=== PATIENT | female | born 1975 | race Caucasian/White ===

== ENCOUNTER 2016-09-28 11:43 | Emergency (ER) | payer MEDICAID, OTHER ==
--- NOTE | 2016-09-28 12:36 | ED PDOC ---
HPI: General Adult Time Seen by Provider: 09/28/16 12:01 Chief Complaint (Provider): abdominal pain History Per: Patient History/Exam Limitations: no limitations Additional Complaint(s): 40yo female with abdominal pain and back pain since yesterday. She has been taking Motrin without relief, last taken 2300 yesterday. Patient had a D& C 5 days ago in [place]. States there were no symptoms after the procedure. No fever yesterday or today. States vaginal bleeding is a bit worse today, described as darker heavy clots. Past Medical History Reviewed: Historical Data, Nursing Documentation, Vital Signs - Medical History PMH: Asthma, Back Problems, Hypercholesterolemia, Kidney Stones (19 years old), Chronic Kidney Disease - Surgical History Surgical History: Cholecystectomy Other surgeries: D&C - Family History Family History: States: Unknown Family Hx - Social History Drugs: Denies - Immunization History Hx Tetanus Toxoid Vaccination: No Hx Influenza Vaccination: No Hx Pneumococcal Vaccination: No - Home Medications Home Medications: Ambulatory Orders Medication Instructions Recorded Acetaminophen/Butalbital/Caf 1 tab PO TID PRN #20 tab 06/20/16 [Fioricet] Desonide 15 gm TP BID #1 cream..g. 06/20/16 traMADol [Ultram] 50 mg PO TID PRN #15 tab 09/28/16 - Allergies Allergies/Adverse Reactions: Allergies Allergy/AdvReac Type Severity Reaction Status Date / Time No Known Allergies Allergy Verified 09/28/16 12:36 Review of Systems ROS Statement: Except As Marked, All Systems Reviewed And Found Negative Gastrointestinal: Positive for: Abdominal Pain Genitourinary Female: Positive for: Vaginal Bleeding Musculoskeletal: Positive for: Back Pain Physical Exam - Reviewed Nursing Documentation Reviewed: Yes Vital Signs Reviewed: Yes - Physical Exam Appears: Positive for: Well, Non-toxic, No Acute Distress Head Exam: Positive for: ATRAUMATIC, NORMAL INSPECTION, NORMOCEPHALIC Skin: Positive for: Warm, Dry Eye Exam: Positive for: EOMI, PERRL Cardiovascular/Chest: Positive for: Regular Rate, Rhythm Respiratory: Positive for: Normal Breath Sounds. Negative for: Rales, Rhonchi, Wheezing Gastrointestinal/Abdominal: Positive for: Soft, Tenderness (suprapubic) Extremity: Positive for: Normal ROM - Laboratory Results Result Diagrams: 09/28/16 13:00 09/28/16 13:00 - CT Scan/US US Pelvis Other Rad Studies (CT/US): Read By Radiologist, Radiology Report Reviewed Medical Decision Making Medical Decision Makin impression suprapubic pain s/p D&C 5 days ago Differential includes uterine dysfunction uterine bleeding endometriosis, UTI, fibroids Plan: US Pelvis/Transvag Labs Morphine reassess 1620 US Pelvis Impression probable 2.2 cm right ovarian follicle/cyst Disposition - Clinical Impression Clinical Impression: Genitourinary Pain, Vaginal bleeding - Patient ED Disposition Is Patient to be Admitted: No Doctor Will See Patient In The: Office Counseled Patient/Family Regarding: Studies Performed, Diagnosis, Need For Followup - Disposition Referrals: [facility] [Outside] Disposition: Routine/Home Disposition Time: 17:48 Condition: GOOD Additional Instructions: Return for worsening. Follow up with your PCP in 2-3 days. Prescriptions: traMADol [Ultram] 50 mg PO TID PRN #15 tab PRN Reason: Pain, Severe (8-10) Instructions: Ovarian Cyst (ED), Menorrhagia (ED) Additional Comments - Additional Comments Additional Comments: Scribe Attestation: Documented by Jeremiah Kirk acting as a scribe for Elly Davis MD. Provider Scribe Attestation: All medical record entries made by the Scribe were at my direction and personally dictated by me. I have reviewed the chart and agree that the record accurately reflects my personal performance of the history, physical exam, medical decision making, and the department course for this patient. I have also personally directed, reviewed, and agree with the discharge instructions and disposition.
[2016-09-28 13:37] LABS: BLOOD UREA NITROGEN 9 mg/dl (7-17); CARBON DIOXIDE 23 mmol/L (22-30); CHLORIDE 106 mmol/L (98-107); GFR AFRICAN-AMERICAN > 60; GLUCOSE,RANDOM 103 mg/dL (65-105); POTASSIUM 3.7 MMOL/L (3.6-5.0); SODIUM 140 mmol/l (132-148)
[2016-09-28 13:39] LABS: BASO # 0.1 K/uL (0.0-0.2); BASO % 0.5 % (0.0-2.0); EOS # 0.3 K/uL (0.0-0.7); EOS % 2.6 % (0.0-4.0); HEMATOCRIT 38.1 % (34.0-47.0); LYMPH # 1.9 K/uL (1.0-4.3); LYMPH % 18.3 % (20.0-40.0); MEAN CELL VOLUME 93.1 fl (81.0-99.0); MEAN CORPUSCULAR HEMOGLOBIN 31.8 pg (27.0-31.0); MEAN CORPUSCULAR HGB CONC 34.2 g/dL (33.0-37.0); MEAN PLATELET VOLUME 8.4 fl (7.2-11.7); MONO # 0.6 K/uL (0.0-0.8); MONO % 5.9 % (0.0-10.0); NEUT # 7.6 K/uL (1.8-7.0); NEUT % 72.7 % (50.0-75.0); NRBC % 0.1 % (0.0-0.0); RED CELL DISTRIBUTION WIDTH 13.5 % (11.5-14.5); WHITE BLOOD COUNT 10.5 K/uL (4.8-10.8)
--- NOTE | 2016-09-28 15:29 | US ---
HISTORY: SUPRAPUBIC PAIN COMPARISON: None available. TECHNIQUE: Pelvis ultrasound FINDINGS: UTERUS: Measures 10.1 x 5.5 x 5.7 cm. Anteverted. ENDOMETRIUM: Measures 5 mm in diameter. CERVIX: No cervical abnormality identified. RIGHT OVARY: Measures 3.4 x 2.2 x 2.6 cm. Blood flow is demonstrated. 2.2 x 1.2 x 1.7 cm anechoic lesion, likely follicle/cyst. LEFT OVARY: Measures 2.4 x 1.5 x 2.7 cm. Blood flow is demonstrated. FREE FLUID: No significant free fluid noted. OTHER FINDINGS: None. IMPRESSION: Probable 2.2 cm right ovarian follicle/cyst.
[2016-09-28] MEDS ORDERED: Oxycodone/Acetaminophen 5/325 mg Tab PO ONE (16:35)
[2016-09-28] MEDS ORDERED: Oxycodone/Acetaminophen 5/325 mg Tab ONE (16:52)
== END 2016-09-28 18:24 | disposition home or self-care (01) ==
LOC: H.ER 11:43
DX: N83.02 Follicular cyst of left ovary (principal); N92.4 Excessive bleeding in the premenopausal period; E78.00 Pure hypercholesterolemia, unspecified; N18.9 Chronic kidney disease, unspecified; J45.909 Unspecified asthma, uncomplicated; R10.9 Unspecified abdominal pain

== ENCOUNTER 2016-10-11 13:51 | Emergency (ER) | payer OTHER ==
[2016-10-11 14:04] VITALS: BP 136/63; PULSE 80; RESP 18; TEMP 97; O2SAT 100
[2016-10-11] MEDS ORDERED: Sodium Chloride 0.9% 1,000 ML IV STA (14:34)
--- NOTE | 2016-10-11 14:38 | ED PDOC ---
HPI: Abdomen Time Seen by Provider: 10/11/16 14:21 Chief Complaint (Nursing): GI Problem Chief Complaint (Provider): Abdominal Pain History Per: Patient History/Exam Limitations: no limitations Onset/Duration Of Symptoms: Days (4 days) Outside of [place] travel?: No Current Symptoms Are (Timing): Still Present Severity: Moderate Pain Scale Rating Of: 4 Location Of Pain/Discomfort: Epigastric Quality Of Discomfort: Burning, Pressure Associated Symptoms: Fever, Nausea, Vomiting (one episode), Diarrhea (several episodes), Back Pain, Other (dizziness, cough; denies dyspnea). denies: Chills , Urinary Symptoms (dysuria) Exacerbating Factors: Food Alleviating Factors: denies: OTC Meds (lindsay-seltzer, pepcid, motrin) Additional Complaint(s): Asiya Pope is a 41 year old female, with no pertinent past medical history, who presents to the emergency department for the evaluation of abdominal pain, ongoing for the past 4 days. Pain is described as a pressurized , burning sensation, rated as a 4/10 in severity, that radiates to her back. Patient states that she took [place], Pepcid, and 2 tablets of Motrin 4 days ago without relief, prompting her visit to the emergency room. Exacerbating factors includes food. Associated dizziness, nausea, one episode of vomiting, several episodes of diarrhea, a fever, and a cough are currently present. Denies chills, dysuria, or dyspnea. Of note, patient reports having had an approximately 3-4 weeks ago and a cholecystectomy when she was 19 years old. No known drug allergies. PMD: Jacqueline Gould [place] Past Medical History Reviewed: Historical Data, Nursing Documentation, Vital Signs Vital Signs: Last Vital Signs Temp 97 F L 10/11/16 14:01 Pulse 80 10/11/16 14:01 Resp 18 10/11/16 14:01 BP 136/63 10/11/16 14:01 Pulse Ox 100 10/11/16 16:11 - Medical History PMH: Asthma, Back Problems, Hypercholesterolemia, Kidney Stones (19 years old), Chronic Kidney Disease Other PMH: Deafness (wearing hearing aids) - Surgical History Surgical History: Cholecystectomy - Family History Family History: States: No Known Family Hx - Social History Current smoker - smoking cessation education provided: Yes Alcohol: Occasional Drugs: Denies - Immunization History Hx Tetanus Toxoid Vaccination: No Hx Influenza Vaccination: No Hx Pneumococcal Vaccination: No - Home Medications Home Medications: Ambulatory Orders Medication Instructions Recorded Acetaminophen/Butalbital/Caf 1 tab PO TID PRN #20 tab 06/20/16 [Fioricet] Desonide 15 gm TP BID #1 cream..g. 06/20/16 traMADol [Ultram] 50 mg PO TID PRN #15 tab 09/28/16 Omeprazole Magnesium [Prilosec Otc] 20 mg PO DAILY #30 tcp 10/11/16 Ondansetron ODT [Zofran ODT] 1 odt PO Q6 PRN #20 odt 10/11/16 - Allergies Allergies/Adverse Reactions: Allergies Allergy/AdvReac Type Severity Reaction Status Date / Time No Known Allergies Allergy Verified 09/28/16 12:36 Review of Systems ROS Statement: Except As Marked, All Systems Reviewed And Found Negative Constitutional: Positive for: Fever. Negative for: Chills Respiratory: Positive for: Cough. Negative for: Shortness of Breath Gastrointestinal: Positive for: Nausea, Vomiting, Abdominal Pain, Diarrhea Genitourinary Female: Negative for: Dysuria Musculoskeletal: Positive for: Back Pain Neurological: Positive for: Dizziness Physical Exam - Reviewed Nursing Documentation Reviewed: Yes Vital Signs Reviewed: Yes - Physical Exam Appears: Positive for: Well, Non-toxic, No Acute Distress Head Exam: Positive for: ATRAUMATIC, NORMOCEPHALIC Skin: Positive for: Normal Color, Warm, Dry. Negative for: Rash Eye Exam: Positive for: Normal appearance, EOMI. Negative for: Scleral icterus Neck: Positive for: Normal, Painless ROM, Supple Cardiovascular/Chest: Positive for: Regular Rate, Rhythm. Negative for: Murmur Respiratory: Positive for: Normal Breath Sounds. Negative for: Respiratory Distress Gastrointestinal/Abdominal: Positive for: Normal Exam, Soft, Tenderness ( epigastric tenderness to palpations) Back: Positive for: Normal Inspection. Negative for: L CVA Tenderness, R CVA Tenderness Extremity: Positive for: Normal ROM. Negative for: Tenderness, Swelling Lymphatic: Positive for: Normal Exam. Negative for: Adenopathy Neurologic/Psych: Positive for: Alert, Oriented. Negative for: Motor/Sensory Deficits - Laboratory Results Result Diagrams: 10/11/16 15:00 10/11/16 15:00 - ECG O2 Sat by Pulse Oximetry: 100 (RA) Pulse Ox Interpretation: Normal Medical Decision Making Medical Decision Makin:21 Initial Impression: Gastritis Differential Diagnoses include, but are not limited to, pancreatitis, gastroesophageal reflux disease, or a possible ulcer. Initial Plan: * Complete Blood Count * Comprehensive Metabolic Panel * Lipase * Urine Dip * Urine * Sodium Chloride 0.9% 1,000 ml IV at 1,000 mls/hr * Pepcid 20 mg IVP * Zofran 4 mg IVP * Reevaluation Scribe Attestation: Documented by Jeremiah Schilling, acting as a scribe for Marialuisa Kwon MD. Provider Scribe Attestation: All medical record entries made by the Scribe were at my direction and personally dictated by me. I have reviewed the chart and agree that the record accurately reflects my personal performance of the history, physical exam, medical decision making, and the department course for this patient. I have also personally directed, reviewed, and agree with the discharge instructions and disposition. Disposition - Clinical Impression Clinical Impression: Abdominal pain - Patient ED Disposition Is Patient to be Admitted: No Doctor Will See Patient In The: Office Counseled Patient/Family Regarding: Diagnosis, Need For Followup - Disposition Referrals: Jacqueline Gould MD [Family Provider] - 10/13/16 Disposition: Routine/Home Disposition Time: 16:00 Condition: STABLE Prescriptions: Omeprazole Magnesium [Prilosec Otc] 20 mg PO DAILY #30 tcp Ondansetron ODT [Zofran ODT] 1 odt PO Q6 PRN #20 odt PRN Reason: Nausea/Vomiting Instructions: Abdominal Pain (ED) - POA Present On Arrival: None
--- NOTE | 2016-10-11 15:05 | ED PDOC ---
- Laboratory Results Result Diagrams: 10/11/16 15:00 10/11/16 15:00 - ECG O2 Sat by Pulse Oximetry: 100 (RA) Pulse Ox Interpretation: Normal Medical Decision Making Medical Decision Makin:00 Patient transferred over to provider from Dr. Kwon. Pending ER workup, reassessment, and final disposition. 15:50 Labs demonstrate leukocytosis, otherwise no significant abnormalities. Reexamination of abdomen is benign. 15:55 Upon provider reevaluation patient is feeling better, is medically stable, and requires no further treatment in the emergency department at this time. Patient will be discharged home with a prescription for Zofran ODT and Prilosec. Counseling was provided and all questions were answered regarding diagnosis and need for follow up with Jacqueline Gould MD in 1-2 days. Patient is in agreement with provider's discharge plan and was prompted to return if their symptoms persist or worsen. Clinical Impression: Abdominal pain Scribe Attestation: Documented by Jeremiah Schilling, acting as a scribe for Giselle Ridley MD. Provider Scribe Attestation: All medical record entries made by the Scribe were at my direction and personally dictated by me. I have reviewed the chart and agree that the record accurately reflects my personal performance of the history, physical exam, medical decision making, and the department course for this patient. I have also personally directed, reviewed, and agree with the discharge instructions and disposition. Disposition - Clinical Impression Clinical Impression: Abdominal pain - POA Present On Arrival: None - Disposition Referrals: Jacqueline Gould MD [Family Provider] - 10/13/16 Disposition: Routine/Home Disposition Time: 15:55 Condition: STABLE Prescriptions: Omeprazole Magnesium [Prilosec Otc] 20 mg PO DAILY #30 tcp Ondansetron ODT [Zofran ODT] 1 odt PO Q6 PRN #20 odt PRN Reason: Nausea/Vomiting Instructions: Abdominal Pain (ED)
[2016-10-11 15:15] LABS: BASO # 0.1 K/uL (0.0-0.2); BASO % 0.4 % (0.0-2.0); EOS # 0.6 K/uL (0.0-0.7); EOS % 4.2 % (0.0-4.0); LYMPH # 1.8 K/uL (1.0-4.3); LYMPH % 13.5 % (20.0-40.0); MEAN CELL VOLUME 93.7 fl (81.0-99.0); MEAN CORPUSCULAR HEMOGLOBIN 31.5 pg (27.0-31.0); MEAN CORPUSCULAR HGB CONC 33.6 g/dL (33.0-37.0); MEAN PLATELET VOLUME 8.2 fl (7.2-11.7); MONO # 0.6 K/uL (0.0-0.8); MONO % 4.8 % (0.0-10.0); NEUT # 10.1 K/uL (1.8-7.0); NEUT % 77.1 % (50.0-75.0); NRBC % 0.1 % (0.0-0.0); RED CELL DISTRIBUTION WIDTH 13.6 % (11.5-14.5); WHITE BLOOD COUNT 13.1 K/uL (4.8-10.8)
[2016-10-11 15:26] LABS: ALB/GLOB RATIO 1.2 (1.0-2.1); ALKALINE PHOSPHATASE 60 U/L (38-126); ALT/SGPT 30 U/L (9-52); AST/SGOT 25 U/L (14-36); BILIRUBIN,TOTAL 0.9 mg/dl (0.2-1.3); BLOOD UREA NITROGEN 20 mg/dl (7-17); CALCIUM 9.1 mg/dL (8.4-10.2); CARBON DIOXIDE 25 mmol/L (22-30); CHLORIDE 103 mmol/L (98-107); GFR AFRICAN-AMERICAN > 60; GLUCOSE,RANDOM 91 mg/dL (65-105); LIPASE 66 U/L (23-300); SODIUM 138 mmol/l (132-148); TOTAL PROTEIN 7.9 G/DL (6.3-8.2)
[2016-10-11 15:39] LABS: RBC URINE 5 /hpf (0-3); URINE BACTERIA OCC (<OCC); URINE BILIRUBIN NEGATIVE (NEGATIVE); URINE COLOR AMBER (YELLOW); URINE GLUCOSE (UA) NEG (Normal); URINE KETONE TRACE mg/dL (NEGATIVE); URINE PROTEIN 100 mg/dL (NEGATIVE); URINE UROBILINOGEN 0.2-1.0 mg/dL (0.2-1.0); WBC URINE 16 /hpf (0-5)
[2016-10-11 15:40] LABS: URINE BLOOD SMALL (NEGATIVE)
[2016-10-11 15:41] LABS: URINE LEUKOCYTE ESTERASE MODERATE Leu/uL (Negative)
== END 2016-10-11 16:31 | disposition home or self-care (01) ==
LOC: H.ER 13:51
DX: R10.9 Unspecified abdominal pain (principal); R11.2 Nausea with vomiting, unspecified; R19.7 Diarrhea, unspecified; R42 Dizziness and giddiness

== ENCOUNTER 2018-04-04 14:04 | Emergency (ER) | payer MEDICAID, OTHER ==
[2018-04-04 14:05] VITALS: BMI 27.4
[2018-04-04 14:59] VITALS: BP 159/84; PULSE 61; RESP 18; TEMP 98.4; O2SAT 99
[2018-04-04] MEDS ORDERED: Alum-Mag Hydrox-Simethicone Susp (30 mL) PO ONE (15:17)
--- NOTE | 2018-04-04 15:19 | ED PDOC ---
HPI: Abdomen Additional Complaint(s): Pt seen and examined at bedside with attending. 42F no PMH, but PSH lap CCY (1985) p/w RUQ sharp, constant pain radiating into infrascapular that she rates as 7/10 and is unable to identify exacerbating/duong viating symptoms. There are no associated fevers, chills, N/V/diarrhea. She has tried "Tylenol/motrin/pepcid and nothing works". She denies any association with foods, types of foods, dysuria, or reflux. Her last BM was today. PMD: [place] LMP: 03/03/18 <Lashaun Salas - Last Filed: 04/04/18 18:38> <Jaime Daivs - Last Filed: 04/05/18 12:59> Chief Complaint (Nursing): Abdominal Pain Supervising Attending Note - Supervising Attending Note The Documented history was done by the: Physician Professor Of Early Childhood Education, Attending Physician The documented physical exam was done by the: Physician Professor Of Early Childhood Education, Attending Physician The documented procedures were done by the: Physician Professor Of Early Childhood Education, Attending Physician - Attestation: I have personally seen and examined this patient.: Yes I have fully participated in the care of the patient.: Yes I have reviewed all pertinent clinical information: Yes <Jaime Davis - Last Filed: 04/05/18 12:59> Past Medical History Vital Signs: Last Vital Signs Temp 36.9 C 04/04/18 14:57 Pulse 61 04/04/18 14:57 Resp 18 04/04/18 14:57 BP 159/84 H 04/04/18 14:57 Pulse Ox 99 04/04/18 14:57 - Medical History PMH: Back Problems, Kidney Stones (19 years old), Chronic Kidney Disease Denies: Asthma, Hypercholesterolemia - Surgical History Surgical History: Cholecystectomy - Family History Family History: States: Unknown Family Hx - Immunization History Hx Tetanus Toxoid Vaccination: No Hx Influenza Vaccination: Yes (2016) Hx Pneumococcal Vaccination: No <Lashaun Salas - Last Filed: 04/04/18 18:38> Reviewed: Historical Data, Nursing Documentation, Vital Signs Vital Signs: Last Vital Signs Temp 98.4 F 04/04/18 14:57 Pulse 61 04/04/18 14:57 Resp 18 04/04/18 14:57 BP 159/84 H 04/04/18 14:57 Pulse Ox 99 04/04/18 18:39 <Jaime Davis - Last Filed: 04/05/18 12:59> - Home Medications Home Medications: Ambulatory Orders Medication Instructions Recorded Triamcinolone 0.1% [Triamcinolone 0.1 gm TP BID PRN #1 tube 10/18/17 0.1% Cream] traMADol [Ultram] 50 mg PO TID PRN #15 tab 04/04/18 - Allergies Allergies/Adverse Reactions: Allergies Allergy/AdvReac Type Severity Reaction Status Date / Time No Known Allergies Allergy Verified 04/04/18 14:57 Review of Systems ROS Statement: Except As Marked, All Systems Reviewed And Found Negative Gastrointestinal: Positive for: Abdominal Pain (RUQ) <Lashaun Salas - Last Filed: 04/04/18 18:38> ROS Statement: Except As Marked, All Systems Reviewed And Found Negative <Jaime Davis - Last Filed: 04/05/18 12:59> Physical Exam - Reviewed Vital Signs Reviewed: Yes - Physical Exam Appears: Positive for: Well, Non-toxic, No Acute Distress Head Exam: Positive for: ATRAUMATIC Skin: Positive for: Normal Color, Warm, Dry Eye Exam: Positive for: Normal appearance, EOMI Neck: Positive for: Supple Cardiovascular/Chest: Positive for: Regular Rate, Rhythm Respiratory: Positive for: Normal Breath Sounds. Negative for: Crackles, Rales, Rhonchi, Wheezing Gastrointestinal/Abdominal: Positive for: Bowel Sounds, Soft, Tenderness (minimal ttp on deep palpation) Back: Negative for: L CVA Tenderness, R CVA Tenderness Extremity: Positive for: Normal ROM. Negative for: Pedal Edema, Calf Tenderness, Swelling Neurologic/Psych: Positive for: Alert, Oriented <Lashaun Salas - Last Filed: 04/04/18 18:38> - Reviewed Nursing Documentation Reviewed: Yes <Jaime Davis - Last Filed: 04/05/18 12:59> - Laboratory Results Result Diagrams: 04/04/18 15:38 04/04/18 15:38 - ECG O2 Sat by Pulse Oximetry: 99 <Lashuan Salas - Last Filed: 04/04/18 18:38> - Laboratory Results Result Diagrams: 04/04/18 15:38 04/04/18 15:38 <Jaime Davis - Last Filed: 04/05/18 12:59> Medical Decision Making Medical Decision Making: Gastritis vs. Pancreatitis vs. constipation vs. less likely retained stone. - CBC, CMP, Lipase - Mylanta/Protonix - Reeval 1608 CMP is WNL, CBC mild leukocytosis UA negative except trace blood - CT abd/pelvis w/o contrast to eval for possible kidney stone 1825 CT official read: no evidence of renal stones, but heterogeneity of RIGHT lobe segments 7/[address] w/ contrast or ultrasund f/u - Ultrasound abd limited ordered <Lashaun Salas - Last Filed: 04/04/18 18:38> Disposition <Lashaun Salas - Last Filed: 04/04/18 18:38> - Patient ED Disposition Is Patient to be Admitted: Transfer of Care Counseled Patient/Family Regarding: Studies Performed, Diagnosis - Disposition Disposition: Transfer of Care Disposition Time: 17:00 <Jaime Davis - Last Filed: 04/05/18 12:59> - Clinical Impression Clinical Impression: Liver mass, right lobe, Complex cyst of right ovary - Disposition Referrals: [facility] [Outside] (CALL [facility] FOR ANY ASSISTANCE WITH F DONTRELL APPOINTMENTS.) [facility] [Outside] (GET YOUR PELVIC ULTRASOUND AND SCHEDULE APPO INTMENT WITH [facility] OR MANAGER RELOCATION OF YOUR CHOICE SOON POSSIBLE.) [facility] [Family Provider] - (FOLLOW UP WITH GERTRUDE PAULINO THIS WEEK FOR REFERRAL FOR MANAGER RELOCATION) Condition: STABLE Additional Instructions: YOU NEED FURTHER WORKUP FOR THE MASS ON YOUR LIVER AND THE ABNORMALITIES ON YOUR OVARY AND UTERUS. MANDATORY FOLLOWUP WITH YOUR DOCTOR AND [facility] THIS WEEK. Prescriptions: traMADol [Ultram] 50 mg PO TID PRN #15 tab PRN Reason: SEVERE PAIN ONLY Instructions: Acute Abdomen (Belly Pain), Adult (DC), Ovarian Cyst (DC) Forms: [facility] ED School/Work Excuse
[2018-04-04 15:53] LABS: HEMOGLOBIN 12.6 g/dL (12.0-16.0); MEAN CELL VOLUME 91.2 fl (81.0-99.0); MEAN CORPUSCULAR HEMOGLOBIN 29.1 pg (27.0-31.0); MEAN CORPUSCULAR HGB CONC 31.9 g/dL (33.0-37.0); RBC 4.34 Mil/uL (3.80-5.20); RED CELL DISTRIBUTION WIDTH 15.8 % (11.5-14.5); WHITE BLOOD COUNT 12.5 K/uL (4.8-10.8)
[2018-04-04 15:54] LABS: ALB/GLOB RATIO 1.1 (1.0-2.1); ALBUMIN 4.2 g/dL (3.5-5.0); ALT/SGPT 22 U/L (9-52); AST/SGOT 29 U/L (14-36); BLOOD UREA NITROGEN 14 mg/dl (7-17); CALCIUM 9.1 mg/dL (8.4-10.2); GFR NON-AFRICAN AMERICAN > 60; LIPASE 61 U/L (23-300)
[2018-04-04] MEDS ORDERED: Alum-Mag Hydrox-Simethicone Susp (30 mL) ONE (16:10)
--- NOTE | 2018-04-04 18:28 | CT ---
Date of service: 04/04/2018 PROCEDURE: CT Abdomen and Pelvis without intravenous contrast HISTORY: r/o nephrolithiasis Negative test (concurrent with this examination). COMPARISON: 02/03/2014 CT abdomen and pelvis TECHNIQUE: Unenhanced. Neither IV nor oral contrast administered Radiation dose: Total exam DLP = 684.68 mGy-cm. This CT exam was performed using one or more of the following dose reduction techniques: Automated exposure control, adjustment of the mA and/or kV according to patient size, and/or use of iterative reconstruction technique. FINDINGS: LOWER THORAX: Unremarkable. LIVER: Heterogeneity of the liver particularly the right hepatic lobe. The findings primarily affect segments 7 and 8. These findings were not apparent on the prior CT. Follow-up recommended either contrast-enhanced CT or abdominal ultrasound. GALLBLADDER AND BILE DUCTS: Status post cholecystectomy. No abnormality is seen in the gallbladder fossa. PANCREAS: Unremarkable. No gross lesion or ductal dilatation. SPLEEN: Unremarkable. ADRENALS: Unremarkable. No mass. KIDNEYS AND URETERS: Unremarkable. No hydronephrosis. No solid mass. VASCULATURE: Unremarkable. No aortic aneurysm. No atherosclerotic calcification or mural plaque present. BOWEL: Unremarkable. No obstruction. No gross mural thickening. APPENDIX: Unremarkable. Normal appendix. PERITONEUM: Unremarkable. No free fluid. No free air. LYMPH NODES: Unremarkable. No enlarged lymph nodes. BLADDER: Unremarkable. REPRODUCTIVE: Enlarged, anteverted uterus. BONES: No acute fracture. OTHER FINDINGS: None. IMPRESSION: Unremarkable kidneys, ureters and urinary bladder. Abnormal attenuation features of the right hepatic lobe. Follow-up advised either contrast-enhanced CT or ultrasound.
[2018-04-04] MEDS ORDERED: Iohexol 300 100 ML IJ ONE (21:17)
[2018-04-04] MEDS ORDERED: Sodium Chloride 0.9% 50 ML IV ONE (21:18)
--- NOTE | 2018-04-05 11:11 | CT ---
Date of service: 04/04/2018 PROCEDURE: CT Abdomen and Pelvis with contrast HISTORY: Right liver mass COMPARISON: 04/04/2018 and 02/03/2014. TECHNIQUE: CT scan of the abdomen and pelvis was performed after administration of intravenous contrast. Oral contrast was administered. Coronal and sagittal reformatted images were obtained. Contrast dose: Radiation dose: Total exam DLP = 721.87 mGy-cm. This CT exam was performed using one or more of the following dose reduction techniques: Automated exposure control, adjustment of the mA and/or kV according to patient size, and/or use of iterative reconstruction technique. FINDINGS: LOWER THORAX: The visualized lungs are clear. LIVER: There is an approximately 5.6 x 0.0 x 6.5 cm hypodense mass with peripheral rim enhancement in the posterior superior right hepatic lobe. No ductal dilatation. GALLBLADDER AND BILE DUCTS: Surgically absent. PANCREAS: Normal in size with homogeneous enhancement. No gross lesion or ductal dilatation. SPLEEN: Normal in size and appearance. ADRENALS: No discrete nodule. KIDNEYS AND URETERS: Normal in size with homogeneous enhancement. No hydronephrosis. There is a subcentimeter simple cyst in the lower pole of the left kidney. VASCULATURE: No aortic aneurysm. BOWEL: Evaluation of the bowel is limited in the absence of oral contrast. The small bowel loops are normal in caliber. The colon is grossly normal in appearance. No bowel wall thickening or obstruction. APPENDIX: Normal appendix. PERITONEUM: No free fluid. No free air. LYMPH NODES: No enlarged lymph nodes. BLADDER: Well distended and normal in appearance. REPRODUCTIVE: The uterus is bulky, anteverted and there is diffuse heterogeneous myometrial enhancement. There is a 2.5 cm cyst in the right ovary. BONES: No acute fracture. Within normal limits for the patient's age. OTHER FINDINGS: None. IMPRESSION: Large rim enhancing hypodense mass in the posterior superior right hepatic lobe. The differential considerations include benign and malignant neoplasms, including primary and secondary malignancy. Histopathologic correlation and if clinically indicated correlation with PET-CT may be performed. Bulky uterus with heterogeneous myometrial enhancement. Finding are nonspecific could be related to adenomyosis. Correlation with pelvic ultrasound is advised. A preliminary report was provided by [employer].
--- NOTE | 2018-04-05 11:24 | US ---
Date of service: 04/04/2018 HISTORY: heterogeneity RIGHT lobe / COMPARISON: None. TECHNIQUE: Sonographic evaluation of the right upper quadrant of the abdomen. FINDINGS: LIVER: Measures 15.9 cm in length. Normal echogenicity of the liver parenchyma. There is a 7.7 x 5.3 x 6.2 cm hyperechoic mass in the right hepatic lobe. No intrahepatic bile duct dilatation. GALLBLADDER: Surgically absent. COMMON BILE DUCT: Measures 6.0 mm. No stones. No dilatation. PANCREAS: Unremarkable as visualized. No mass. No ductal dilatation. RIGHT KIDNEY: Measures 10.9 cm in length. Normal echogenicity. No calculus, mass, or hydronephrosis. AORTA: No aneurysmal dilatation. IVC: Unremarkable. OTHER FINDINGS: None . IMPRESSION: 7.7 x 5.3 x 6.2 cm mass in the right hepatic lobe. The differential considerations include benign and malignant neoplasms including giant hemangioma, primary and metastatic lesions. CT scan/MRI of the abdomen with liquid protocol is recommended for further evaluation.
== END 2018-04-04 23:45 | disposition home or self-care (01) ==
LOC: H.ER 14:04
DX: R16.0 Hepatomegaly, not elsewhere classified (principal); N83.201 Unspecified ovarian cyst, right side; N18.9 Chronic kidney disease, unspecified; Z87.442 Personal history of urinary calculi
CPT/HCPCS: 74176; 74177; 76705; 80053; 81025; 83690; 85027; 96374; 99284; C9113; Q9967

== ENCOUNTER 2018-06-01 12:20 | Inpatient (IN) | payer MEDICAID ==
[2018-06-01 12:20] VITALS: BMI 27.4
--- NOTE | 2018-06-01 13:35 | ED PDOC ---
HPI: Abdomen Time Seen by Provider: 06/01/18 12:25 Chief Complaint (Nursing): Abdominal Pain Chief Complaint (Provider): Abdominal Pain History Per: Patient History/Exam Limitations: no limitations Onset/Duration Of Symptoms: Days (x1) Location Of Pain/Discomfort: RUQ Associated Symptoms: Fever, Nausea. denies: Diarrhea Additional Complaint(s): 42 y/o female presents to ER for evaluation of right sided abdominal pain radiating to the rest of the abdomen onset last night associated with nausea. Patient reports she was here in March for the same complaint and was diagnosed with liver mass. She states she is seeing a specialist and doing blood work and workup as an outpaitent but pain is sharp since last night. Patient reports pain is worse with coughing. . She denies vomiting or diarrhea. PMD: Simón Ontiveros Specialist: Breanna Antoine Past Medical History Reviewed: Historical Data, Nursing Documentation, Vital Signs Vital Signs: Last Vital Signs Temp 98.3 F 06/01/18 12:34 Pulse 90 06/01/18 12:24 Resp 16 06/01/18 12:24 BP 146/81 06/01/18 12:24 Pulse Ox 96 06/01/18 12:24 - Medical History PMH: Back Problems, Kidney Stones (19 years old), Chronic Kidney Disease Denies: Asthma, Hypercholesterolemia - Surgical History Surgical History: Cholecystectomy - Family History Family History: States: Unknown Family Hx - Social History Current smoker - smoking cessation education provided: No Alcohol: None Drugs: Denies - Immunization History Hx Tetanus Toxoid Vaccination: No Hx Influenza Vaccination: Yes (2016) Hx Pneumococcal Vaccination: No - Home Medications Home Medications: Ambulatory Orders Medication Instructions Recorded Guaifenesin/Dextromethorphan 1 tab PO Q12 PRN 06/01/18 [Guaifenesin-Dm 400-20 mg Cplt] RX: Acyclovir [Zovirax] 400 mg PO Q8 06/01/18 - Allergies Allergies/Adverse Reactions: Allergies Allergy/AdvReac Type Severity Reaction Status Date / Time No Known Allergies Allergy Verified 06/01/18 12:24 Review of Systems ROS Statement: Except As Marked, All Systems Reviewed And Found Negative Constitutional: Positive for: Fever Gastrointestinal: Positive for: Nausea, Abdominal Pain. Negative for: Vomiting, Diarrhea Physical Exam - Reviewed Nursing Documentation Reviewed: Yes Vital Signs Reviewed: Yes - Physical Exam Appears: Positive for: Non-toxic, No Acute Distress Head Exam: Positive for: ATRAUMATIC, NORMOCEPHALIC Skin: Positive for: Normal Color, Warm, Dry Eye Exam: Positive for: Normal appearance ENT: Positive for: Normal ENT Inspection Neck: Positive for: Normal, Painless ROM, Supple Cardiovascular/Chest: Positive for: Regular Rate, Rhythm. Negative for: Murmur Respiratory: Positive for: Normal Breath Sounds. Negative for: Wheezing Gastrointestinal/Abdominal: Positive for: Bowel Sounds, Soft, Tenderness (r side of abdomen (mild)). Negative for: Distended, Guarding, Rebound Back: Positive for: Normal Inspection. Negative for: L CVA Tenderness, R CVA Tenderness Extremity: Positive for: Normal ROM. Negative for: Pedal Edema, Swelling Neurologic/Psych: Positive for: Alert, Oriented (x3) - Laboratory Results Result Diagrams: 06/02/18 05:45 06/02/18 05:45 - ECG O2 Sat by Pulse Oximetry: 96 (RA) Pulse Ox Interpretation: Normal Medical Decision Making Medical Decision Making: Time: 1335 Initial Plan: abdominal pain, history of liver mass, rule out intraabdominal process, electrolyte abnormality --CT Abdomen/Pelvis --CMP --CBC --Morphine 4 mg IV --Zofran 4 mg IV --CXR 1612 CXR FINDINGS: LUNGS: No active pulmonary disease. PLEURA: No significant pleural effusion identified. No pneumothorax apparent. CARDIOVASCULAR: No aortic atherosclerotic calcification present. Normal cardiac size. No pulmonary vascular congestion. OSSEOUS STRUCTURES: No significant abnormalities. VISUALIZED UPPER ABDOMEN: Normal. OTHER FINDINGS: None. IMPRESSION: No active disease. No significant interval change compared to the prior examination(s). 175 Dr[address] [facility] has accepted patient denisse placed order for GI consult. pt given pain meds. Scribe Attestation: Documented by Wilma Thakur, acting as a scribe for Austen Gu MD. Provider Scribe Attestation: All medical record entries made by the Scribe were at my direction and personall y dictated by me. I have reviewed the chart and agree that the record accurately reflects my personal performance of the history, physical exam, medical decision making, and the department course for this patient. I have also personally directed, reviewed, and agree with the discharge instructions and disposition. Disposition - Clinical Impression Clinical Impression: Abdominal discomfort, Liver mass, right lobe - Patient ED Disposition Is Patient to be Admitted: Yes - Disposition Disposition Time: 17:00 Condition: STABLE
[2018-06-01] MEDS ORDERED: Sodium Chloride 0.9% 1,000 ML IV STA (13:36)
[2018-06-01] MEDS ORDERED: Morphine 4 MG/ML VIAL ONE ×2 (14:16→16:55)
[2018-06-01 14:36] LABS: BASO # 0.1 K/uL (0.0-0.2); BASO % 0.5 % (0.0-2.0); EOS # 0.4 K/uL (0.0-0.7); EOS % 2.5 % (0.0-4.0); HEMOGLOBIN 11.9 g/dL (12.0-16.0); LYMPH # 1.6 K/uL (1.0-4.3); LYMPH % 10.5 % (20.0-40.0); MEAN CELL VOLUME 91.8 fl (81.0-99.0); MEAN CORPUSCULAR HEMOGLOBIN 29.7 pg (27.0-31.0); MEAN CORPUSCULAR HGB CONC 32.4 g/dL (33.0-37.0); MEAN PLATELET VOLUME 8.4 fl (7.2-11.7); MONO # 0.8 K/uL (0.0-0.8); MONO % 5.2 % (0.0-10.0); NEUT # 12.3 K/uL (1.8-7.0); NEUT % 81.3 % (50.0-75.0); NRBC % 0.1 % (0.0-0.0); RBC 4.02 Mil/uL (3.80-5.20); RED CELL DISTRIBUTION WIDTH 15.3 % (11.5-14.5); WHITE BLOOD COUNT 15.1 K/uL (4.8-10.8)
[2018-06-01 14:43] LABS: ALB/GLOB RATIO 1.1 (1.0-2.1); ALT/SGPT 22 U/L (9-52); AST/SGOT 25 U/L (14-36); BLOOD UREA NITROGEN 13 mg/dl (7-17); GFR NON-AFRICAN AMERICAN > 60
[2018-06-01] MEDS ORDERED: Morphine 4 MG/ML VIAL IV ONE ×2 (14:45→16:47)
[2018-06-01] MEDS ORDERED: Iohexol 300 100 ML IJ ONE (16:03)
[2018-06-01] MEDS ORDERED: Sodium Chloride 0.9% 50 ML IV ONE (16:03)
--- NOTE | 2018-06-01 16:16 | RAD ---
Date of service: 06/01/2018 HISTORY: COLD SYMPTOMS COMPARISON: 05/18/2014 TECHNIQUE: Chest PA and lateral FINDINGS: LUNGS: No active pulmonary disease. PLEURA: No significant pleural effusion identified. No pneumothorax apparent. CARDIOVASCULAR: No aortic atherosclerotic calcification present. Normal cardiac size. No pulmonary vascular congestion. OSSEOUS STRUCTURES: No significant abnormalities. VISUALIZED UPPER ABDOMEN: Normal. OTHER FINDINGS: None. IMPRESSION: No active disease. No significant interval change compared to the prior examination(s).
--- NOTE | 2018-06-01 17:03 | CT ---
Date of service: 06/01/2018 PROCEDURE: CT Abdomen and Pelvis with contrast HISTORY: Left-sided abdominal pain COMPARISON: CT scan and ultrasound from 04/04/2018. TECHNIQUE: CT scan of the abdomen and pelvis was performed after administration of intravenous contrast. Oral contrast was not administered. Coronal and sagittal reformatted images were obtained. Contrast dose: 95 mL Omnipaque 3 Radiation dose: Total exam DLP = 754.53 mGy-cm. This CT exam was performed using one or more of the following dose reduction techniques: Automated exposure control, adjustment of the mA and/or kV according to patient size, and/or use of iterative reconstruction technique. FINDINGS: LOWER THORAX: The visualized lungs are clear. LIVER: There is mild hepatomegaly. There is redemonstration of a large 8.6 x 6.5 cm low-attenuation mass with peripheral rim enhancement in the posterior right hepatic lobe, increased in size since the prior examination where it measured 7.1 x 5.5 cm. The mass compresses the posterior branch of the right portal vein. There is a large triangular area of differential low-attenuation in the posterior right hepatic lobe. There is mild periportal edema. GALLBLADDER AND BILE DUCTS: Surgically absent. PANCREAS: Normal in size with homogeneous enhancement. No gross lesion or ductal dilatation. SPLEEN: Normal in size and appearance. ADRENALS: No discrete nodule. KIDNEYS AND URETERS: Normal in size with homogeneous enhancement. No hydronephrosis. No solid mass. There is a subcentimeter simple cyst in the lower pole of the left kidney. VASCULATURE: No aortic aneurysm. BOWEL: Evaluation of the bowel is limited in the absence of oral contrast. The small bowel loops are normal in caliber. The colon is grossly normal in appearance. No bowel wall thickening or obstruction. APPENDIX: Normal appendix. PERITONEUM: No free fluid. No free air. LYMPH NODES: No enlarged lymph nodes. BLADDER: Well distended and normal in appearance. REPRODUCTIVE: Redemonstration of bulky uterus with heterogeneous myometrial enhancement.. There is a 3.1 x 2.5 cm high attenuation cyst in the right ovary. BONES: No acute fracture. Chronic bilateral pars interarticularis defects at L5 with grade 1 anterior listhesis of L5 on S1. Severe degenerative disc disease at L5-S1. OTHER FINDINGS: None. IMPRESSION: 1. Interval increase in size of known large peripherally enhancing mass in the posterior right hepatic lobe. Interval development of mild periportal edema and large triangular area of differential attenuation in the right posterior hepatic lobe likely related to compression of posterior branch of the right portal vein and hypoperfusion. MRI of the abdomen with liver protocol without and with intravenous contrast is recommended for definitive characterization of the mass. 2. 3.1 cm complicated/hemorrhagic cyst in the right ovary. 3. Bulky uterus with heterogeneous myometrial enhancement, adenomyosis is a differential consideration.
[2018-06-01] MEDS: HYDROmorphone 0.5 mg/0.5 ml ISec IVP PRN (21:08)
[2018-06-01] MEDS: Promethazine 6.25 MG/5 ML CUP PO PRN (22:03)
[2018-06-02] MEDS: HYDROmorphone 0.5 mg/0.5 ml ISec IVP PRN ×3 (03:44→16:23)
[2018-06-02] MEDS: Promethazine 6.25 MG/5 ML CUP PO PRN ×2 (03:46→19:12)
[2018-06-02 06:28] LABS: HEMOGLOBIN 11.7 g/dL (12.0-16.0); MEAN CORPUSCULAR HEMOGLOBIN 29.9 pg (27.0-31.0); MEAN CORPUSCULAR HGB CONC 33.2 g/dL (33.0-37.0); RBC 3.92 Mil/uL (3.80-5.20); RED CELL DISTRIBUTION WIDTH 15.4 % (11.5-14.5); WHITE BLOOD COUNT 10.6 K/uL (4.8-10.8)
[2018-06-02 06:50] LABS: ALBUMIN 3.7 g/dL (3.5-5.0); ALT/SGPT 23 U/L (9-52); AST/SGOT 24 U/L (14-36); BLOOD UREA NITROGEN 7 mg/dl (7-17); CALCIUM 8.7 mg/dL (8.4-10.2)
[2018-06-02 06:56] LABS: GFR NON-AFRICAN AMERICAN > 60
--- NOTE | 2018-06-02 08:04 | CP.PCM.HP ---
History of Present Illness - History of Present Illness History of Present Illness: 42 yo female presented to ED with right abdominal pain. Patient recently found out about a 'liver problem' last month. Patient found to have liver mass on CT GI consulted pain improved though still present no other complaints at this time denies fever, chills, cp,sob. allergies: as per chart meds: as per chart fam hx: non contributory Present on Admission - Present on Admission Any Indicators Present on Admission: No Review of Systems - Review of Systems All systems: reviewed and no additional remarkable complaints except (mentioned above) Past Patient History - Past Medical History & Family History Past Medical History?: Yes Past Family History: Reviewed and not pertinent - Past Social History Smoking Status: Current Some Days Smoker - CARDIAC Hx Cardiac Disorders: No Hx Hypercholesterolemia: No Hx Hypertension: No - PULMONARY Hx Respiratory Disorders: No Hx Asthma: No Other/Comment: smoker some days - NEUROLOGICAL Hx Neurological Disorder: No - HEENT Hx HEENT Problems: Yes Hx Deafness: Yes (wears hearing aids to Left, forgot hearing aide to R at home) - RENAL Hx Chronic Kidney Disease: Yes (denies hx of ckd) Hx Kidney Stones: Yes - ENDOCRINE/METABOLIC Hx Endocrine Disorders: No Hx Diabetes Mellitus Type 2: No - HEMATOLOGICAL/ONCOLOGICAL Hx Blood Disorders: No Hx AIDS: No Hx Human Immunodeficiency Virus (HIV): No - INTEGUMENTARY Hx Dermatological Problems: No - MUSCULOSKELETAL/RHEUMATOLOGICAL Hx Musculoskeletal Disorders: No Hx Falls: No - GASTROINTESTINAL Hx Gastrointestinal Disorders: Yes Hx Gall Bladder Disease: Yes Other/Comment: hx of liver mass, reports admitted last month. followed up with liver specialist 05/16/18 T[facility] Rick and was supposed to get a liver bx - GENITOURINARY/GYNECOLOGICAL Hx Genitourinary Disorders: Yes Hx Sexually Transmitted Disorders: Yes (genital herpes hx) - PSYCHIATRIC Hx Psychophysiologic Disorder: No Hx Substance Use: No - SURGICAL HISTORY Hx Surgeries: Yes Hx Cholecystectomy: Yes (20 yrs ago) - ANESTHESIA Hx Anesthesia: Yes Hx Anesthesia Reactions: No Hx Malignant Hyperthermia: No Meds Allergies/Adverse Reactions: Allergies Allergy/AdvReac Type Severity Reaction Status Date / Time No Known Allergies Allergy Verified 06/01/18 12:24 Physical Exam - Constitutional Appears: Non-toxic, No Acute Distress - Head Exam Head Exam: NORMAL INSPECTION - Eye Exam Eye Exam: Normal appearance - Neck Exam Neck exam: Positive for: Normal Inspection - Respiratory Exam Respiratory Exam: NORMAL BREATHING PATTERN - Cardiovascular Exam Cardiovascular Exam: +S1, +S2 - GI/Abdominal Exam GI & Abdominal Exam: Tenderness - Extremities Exam Extremities exam: Positive for: normal inspection - Neurological Exam Neurological exam: Alert, Oriented x3 - Psychiatric Exam Psychiatric exam: Normal Affect, Normal Mood - Skin Skin Exam: Normal Color, Warm Results - Vital Signs Recent Vital Signs: Last Vital Signs Temp 97.7 F 06/02/18 07:57 Pulse 59 L 06/02/18 07:57 Resp 18 06/02/18 07:57 BP 130/83 06/02/18 07:57 Pulse Ox 96 06/02/18 07:57 - Labs Result Diagrams: 06/02/18 05:45 06/02/18 05:45 Labs: Laboratory Results - last 24 hr 06/01/18 06/01/18 06/02/18 14:26 14:26 05:45 WBC 15.1 H 10.6 RBC 4.02 3.92 Hgb 11.9 L 11.7 L Hct 36.9 35.3 MCV 91.8 90.0 MCH 29.7 29.9 MCHC 32.4 L 33.2 RDW 15.3 H 15.4 H Plt Count 274 266 MPV 8.4 Neut % (Auto) 81.3 H Lymph % (Auto) 10.5 L [place] % (Auto) 5.2 Eos % (Auto) 2.5 Baso % (Auto) 0.5 Neut # (Auto) 12.3 H Lymph # (Auto) 1.6 [place] # (Auto) 0.8 Eos # (Auto) 0.4 Baso # (Auto) 0.1 Sodium 138 Potassium 3.7 Chloride 99 Carbon Dioxide 27 Anion Gap 16 BUN 13 Creatinine 0.6 L Est GFR ( Amer) > 60 Est GFR (Non-Af Amer) > 60 Random Glucose 103 Calcium 9.0 Total Bilirubin 0.4 AST 25 ALT 22 Alkaline Phosphatase 81 Total Protein 7.7 Albumin 4.0 Globulin 3.6 Albumin/Globulin Ratio 1.1 06/02/18 05:45 WBC RBC Hgb Hct MCV MCH MCHC RDW Plt Count MPV Neut % (Auto) Lymph % (Auto) [place] % (Auto) Eos % (Auto) Baso % (Auto) Neut # (Auto) Lymph # (Auto) [place] # (Auto) Eos # (Auto) Baso # (Auto) Sodium 132 Potassium 3.5 L Chloride 99 Carbon Dioxide 28 Anion Gap 9 L BUN 7 Creatinine 0.7 Est GFR ( Amer) > 60 Est GFR (Non-Af Amer) > 60 Random Glucose 96 Calcium 8.7 Total Bilirubin 0.8 AST 24 ALT 23 Alkaline Phosphatase 77 Total Protein 7.3 Albumin 3.7 Globulin 3.6 Albumin/Globulin Ratio 1.0 Assessment & Plan (1) Liver mass, right lobe Status: Acute (2) Complex cyst of right ovary Status: Acute - Assessment and Plan (Free Text) Plan: monitor labs monitor vitals GI consulted obtain MRI of abdomen obtain TVUS consider ob gyn consult rest of plan as orderd
[2018-06-02] MEDS ORDERED: Pneumococcal 23-Valent Vaccine IM ONE (09:00)
[2018-06-02] MEDS ORDERED: Influenza Vaccine (5 YR UP)/PF 60 MCG/0.5 ML SYR IM ONE (09:00)
[2018-06-02] MEDS: Morphine 4 MG/ML VIAL IVP PRN ×2 (09:01→19:09)
[2018-06-02 10:12] LABS: PROTHROMBIN TIME 11.3 Seconds (9.8-13.1)
[2018-06-02 10:14] LABS: PARTIAL THROMBOPLASTIN TIME 33.9 Seconds (25.6-37.1)
--- NOTE | 2018-06-02 13:47 | US ---
Date of service: 06/02/2018 HISTORY: ovarian cyst COMPARISON: CT of the abdomen and pelvic report 06/01/2018 TECHNIQUE: Transvaginal FINDINGS: UTERUS: Measures 9.6 x 6.5 x 5.7 cm. Anteverted Posterior upper uterine body intramural fibroid 2.3 x 2.2 x 1.9 cm. ENDOMETRIUM: Measures 7 mm in diameter. Unremarkable. CERVIX: Small 5 mm nabothian cysts noted RIGHT OVARY: Right ovary measures 4.8 x 2.9 x 2.7 cm. Small cystic components the right ovary are smaller than that suggested with the more dominant cystic appearance suggested on the recent CT abdomen and pelvic exam. Normal flow to the right ovary is seen. LEFT OVARY: Not visualized. Prominent bowel gas here noted FREE FLUID: There is some free fluid around near the right ovary and near the uterine fundus. OTHER FINDINGS: None. IMPRESSION: The appearance of the right adnexa/likely right ovary has much smaller foci componenta to it than was suggested on CT physiologic changes in the right ovary is 1 1 consideration in this age group. LMP 05/15/2018 and irregular. A small amount of free fluid is in the aforementioned pockets as noted above. Physiologic changes hemorrhagic cyst is 1 consideration. Consider follow-up transvaginal ultrasound imaging in 6 to 8 weeks to reassess. Intra mural posterior upper body/upper uterine segment fibroid. Unremarkable endometrium. Nonvisualized left ovary.
[2018-06-02] MEDS ORDERED: Gadodiamide 287 MG/ML VIAL (15ML) IV ONE (14:25)
[2018-06-02] MEDS ORDERED: Sodium Chloride 0.9% 50 ML IV ONE (14:25)
[2018-06-03] MEDS: Morphine 4 MG/ML VIAL IVP PRN (03:07)
[2018-06-03] MEDS: Promethazine 6.25 MG/5 ML CUP PO PRN (05:28)
[2018-06-03 06:43] LABS: HEMOGLOBIN 11.9 g/dL (12.0-16.0); MEAN CELL VOLUME 90.9 fl (81.0-99.0); MEAN CORPUSCULAR HEMOGLOBIN 30.2 pg (27.0-31.0); MEAN CORPUSCULAR HGB CONC 33.2 g/dL (33.0-37.0); RBC 3.96 Mil/uL (3.80-5.20); RED CELL DISTRIBUTION WIDTH 15.2 % (11.5-14.5); WHITE BLOOD COUNT 9.5 K/uL (4.8-10.8)
[2018-06-03 07:43] LABS: ALB/GLOB RATIO 1.1 (1.0-2.1); ALBUMIN 3.8 g/dL (3.5-5.0); ALT/SGPT 26 U/L (9-52); AST/SGOT 24 U/L (14-36); BLOOD UREA NITROGEN 9 mg/dl (7-17); CALCIUM 9.1 mg/dL (8.4-10.2); GFR NON-AFRICAN AMERICAN > 60
--- NOTE | 2018-06-03 09:44 | MRI ---
MRI abdomen without/with IV contrast Indication: liver mass, LIVER PROTOCOL Technique: Multiplanar, multi sequence magnetic resonance images of the abdomen were obtained without and with the administration of intravenous gadolinium using a multi phase abdomen protocol. A total of 882 images submitted for review Comparison: CT abdomen pelvis with IV contrast performed 06/01/18 Findings: Heterogeneous appearance of the hepatic parenchyma. There is an approximately 8.0 x 6.6 cm irregular mass within the right hepatic lobe which appears heterogeneous on T2 weighted imaging. Heterogeneous postcontrast enhancement with nonenhancing central regions possibly related to necrosis. Evidence of restricted diffusion. Evidence of surrounding edema. No significant washout appreciated on delayed images. Question possibility of satellite mass within the posterior right hepatic lobe measuring approximately 0.8 cm. This mass demonstrates restricted diffusion. Cholecystectomy. 12 mm probable splenule. The spleen, pancreas, and adrenal glands appear unremarkable. The kidneys enhance symmetrically. No hydronephrosis or obstructing calculus. 5 mm left renal cyst. No bulky adenopathy identified. Limited views of the inferior thorax appear unremarkable. Anterolisthesis of L5 on S1 measuring approximately 10 mm. Impression: Irregular right hepatic lobe mass as described above with possibility of satellite lesion in the posterior right hepatic lobe. Imaging characteristics are not characteristic of a benign mass. Malignant neoplasm must be excluded. Additional incidental findings as above. Preliminary impression was provided by [facility].
--- NOTE | 2018-06-03 10:49 | CON ---
DATE: 06/02/2018 REFERRING DOCTOR: Bryan Reed M.D. REASON FOR CONSULTATION: Abdominal pain and liver mass. HISTORY OF PRESENT ILLNESS: This is a 42-year-old female. The patient was seen about a month ago in the office where her bilingual manager told she has hemangioma since it is getting worse. States she has no nausea, no vomiting, no GI complaints other than right-sided abdominal pain. No fevers. No chills. No diarrhea. No weight loss. Currently, has a dry mouth, otherwise no complaints. PAST MEDICAL HISTORY: As above. PAST SURGICAL HISTORY: As above. MEDICATIONS: Reviewed. REVIEW OF SYSTEMS: All other systems have been reviewed and negative apart from the HPI. PHYSICAL EXAMINATION: VITAL SIGNS: Here in the hospital, grossly unremarkable. GENERAL: A pleasant middle-aged female, lying in bed comfortably, in no apparent distress. HEENT: Head: Normocephalic and atraumatic. Eyes: Pupils are equally reactive to light bilaterally. No conjunctival pallor or icterus. NECK: Supple. Normal range of motion. No lymphadenopathy appreciated. LUNGS: Coarse breath sounds bilaterally. HEART: S1 and S2, regular rate and rhythm. No murmurs appreciated. ABDOMEN: Soft, nontender. Bowel sounds present. No rebound. No guarding. LABORATORY DATA: All labs and radiology have been reviewed. WBC is 15.1 down to 10.6, hemoglobin stable is at 9.7, platelet count is normal. INR is 1. Potassium 3.5. LFTs are completely normal. Abdominal and pelvic CT shows interval increase of large peripheral enhancing mass in the posterior right lobe with some compression of the posterior branch of the left portal vein with bulky uterus as well as a hemorrhagic cyst in the right ovary. The mass measures approximately 8.6 x 6.5 on attenuation. Transvaginal ultrasound shows physiologic changes of the ovary. ASSESSMENT AND PLAN: This is a 42-year-old female with enlarging liver mass with mild compressive effects of the portal vein, unclear etiology what this may be, but suspect this is probably hemangioma. MRI of the abdomen, pelvis and liver is pending. Need to discuss the radiological finding. If it is really a hemangioma and the pain is from said enlarging mass, we may need to do a hepatobiliary evaluation and possible surgical resection. For now, advance diet as tolerated. We will follow the patient with you. Thank you for the consult. TAIWO Krause cc: Bryan Reed M.D.
[2018-06-03 12:07] VITALS: BP 131/61; PULSE 70; RESP 18; TEMP 98.4; O2SAT 100
[2018-06-03] MEDS ORDERED: Lidocaine 1% Inj (20ml) ONE (12:20)
[2018-06-03] MEDS ORDERED: Absorbable Gelatin Sponge Size 12-7 ONE (12:36)
--- NOTE | 2018-06-03 12:54 | PCM.SURG1 ---
Surgeon's Initial Post Op Note - Surgeon's Notes Surgeon: Tee Acls Nurse: None Type of Anesthesia: Local Pre-Operative Diagnosis: Right hepatic mass Operative Findings: Right hepatic mass Post-Operative Diagnosis: Right hepatic mass Operation Performed: Attempted right hepatic mass biopsy. The procedure was terminated because the patient could not tolerate the pain. The procedure has to be rescheduled with anesthesia. Specimen/Specimens Removed: None obtained Estimated Blood Loss: EBL {In ML}: 2 Date of Surgery/Procedure: 06/03/18 Time of Surgery/Procedure: 12:50
--- NOTE | 2018-06-03 15:23 | CP.PCM.PCO ---
Assessment/Plan - Assessment/Plan Assessment (Free Text): Pt stable, was unable to have liver biopsy done. Pt scheduled for outpatient bx next week
[2018-06-05 08:06] LABS: HEPATITIS B SURFACE AG Negative (NEGATIVE)
[2018-06-05 08:11] LABS: HEPATITIS B CORE AB NEGATIVE (NEGATIVE)
[2018-06-05 08:23] LABS: HEPATITIS C ANTIBODY NEGATIVE (NEGATIVE)
[2018-06-05 09:41] LABS: HEPATITIS A IGM NEGATIVE (NEGATIVE)
== END 2018-06-03 16:00 | disposition home or self-care (01) | DRG 206 ==
LOC: H.ER 12:20 → H.ERHOLD 17:46 → H.MEDSURG1 18:50
PROVIDERS: ADMIT Family Medicine; ATTEND Family Medicine
PROC: 3E02340 Introduction of Influenza Vaccine into Muscle, Percutaneous Approach (ICD-10-PCS; principal; 2018-06-02)
PROC: 3E0234Z Introduction of Serum, Toxoid and Vaccine into Muscle, Percutaneous Approach (ICD-10-PCS; 2018-06-02)
DX: R16.0 Hepatomegaly, not elsewhere classified (principal); N83.291 Other ovarian cyst, right side; Z53.8 Procedure and treatment not carried out for other reasons; Z23 Encounter for immunization; F17.210 Nicotine dependence, cigarettes, uncomplicated; Z87.442 Personal history of urinary calculi

== ENCOUNTER 2018-06-08 09:19 | Day surgery (SDC) | payer MEDICAID ==
[2018-06-08 10:04] VITALS: BMI 33.6
[2018-06-08 10:11] VITALS: RESP 18
[2018-06-08] MEDS ORDERED: Lactated Ringer's 1,000 ML IV ONE ×2 (10:22→13:05)
[2018-06-08] MEDS ORDERED: Absorbable Gelatin Sponge Size 12-7 ONE (11:42)
[2018-06-08] MEDS ORDERED: Lidocaine 1% Inj (20ml) ONE (11:42)
[2018-06-08] MEDS ORDERED: Midazolam 2 MG/2 ML VIAL ONE (12:42)
[2018-06-08] MEDS: HYDROmorphone 0.5 mg/0.5 ml ISec IVP PRN ×4 (13:05→13:50)
--- NOTE | 2018-06-08 13:09 | CP.SDSHP ---
Same Day Surgery H & P - History Proposed Procedure: US guided liver mass bioPsy. Pre-Op Diagnosis: Liver mass - Allergies Allergies: Allergies No Known Allergies Allergy (Verified 06/08/18 10:02) - Physical Exam Vital Signs: Vital Signs 06/08/18 06/08/18 10:08 12:58 Temperature 97.6 F 97.6 F Pulse Rate 67 69 Respiratory 18 18 Rate Blood Pressure 131/83 128/88 O2 Sat by Pulse 100 100 Oximetry Mental Status: Alert & Oriented x3 Neuro: WNL Heart: WNL Lungs: WNL - Impression Impression: Pt with right hepatic mass. US confirmed mass. Plan US guided core biopsy. Informed consent and risk of bleeding discussed with Pt. Pt. Evaluated Today:Candidate for Anesthesia & Procedure: Yes (asa 3 Malampati 3) - Date & Time Date: 06/08/18 Time: 13:05 Short Stay Discharge - Short Stay Discharge Admitting Diagnosis/Reason for Visit: LIVER MASS Disposition: HOME/ ROUTINE Referrals: Simón Flores DO [Primary Care Provider] -
[2018-06-08] MEDS ORDERED: HYDROmorphone 0.5 mg/0.5 ml ISec ONE (13:10)
[2018-06-08] MEDS ORDERED: Oxycodone/Acetaminophen 5/325 mg Tab PO PRN (13:11)
--- NOTE | 2018-06-08 13:11 | PCM.SURG1 ---
Surgeon's Initial Post Op Note - Surgeon's Notes Surgeon: Yung Cruz MD Oil [employer]iner: NONE Type of Anesthesia: IV Sedation Pre-Operative Diagnosis: Liver mass Operative Findings: US showed a heterogenous, hypoechoic mass right hepatic lobe. Post-Operative Diagnosis: Liver mass Operation Performed: US guided core biosy. Three 18-g core specimen obtained. Needle throw adjusted to <2 cm for biopsy. Biopsy tract embolized with gelfoam. Specimen/Specimens Removed: 18-g core Estimated Blood Loss: EBL {In ML}: 2 Blood Products Given: N/A Drains Used: No Drains Post-Op Condition: Good Date of Surgery/Procedure: 06/08/18 Time of Surgery/Procedure: 13:05
[2018-06-08] MEDS ORDERED: Lactated Ringer's 1,000 ML IV SCH (13:15)
--- NOTE | 2018-06-08 14:02 | US ---
PROCEDURE: Date of procedure: 06/08/2018 Procedure: Ultrasound-guided percutaneous core biopsy of liver mass, CPT 92081 Ultrasound guidance for biopsy, CPT 39044 Medications: The patient was sedated by the anesthesiologist with IV sedation and monitoring. HISTORY: Liver Mass TECHNIQUE: Following informed consent and procedure time-out, the patient was placed supine on bed and limited ultrasound showed liver mass within the right hepatic lobe. After the patient abdomen was prepped and draped in the usual sterile fashion and the skin anesthetized with lidocaine, an 18 gauge core needle was advanced percutaneously under direct ultrasound guidance into the mass. Upon confirmation of needle position, three core specimens were obtained and sent for routine pathology. The biopsy track was then embolized with Gelfoam. A post biopsy ultrasound performed showed no hematoma. A dressing was applied. IMPRESSION: Ultrasound-guided core biopsy of liver mass.
[2018-06-08 16:08] VITALS: BP 147/75; PULSE 81; TEMP 97.5; O2SAT 98
== END 2018-06-08 16:00 | disposition home or self-care (01) ==
LOC: H.OPSURG 09:19
PROVIDERS: ATTEND Family Medicine
DX: R16.0 Hepatomegaly, not elsewhere classified (principal)
CPT/HCPCS: 47000; 88307; J1170; J2250; J3010; J7120

== ENCOUNTER 2018-09-26 16:25 | Observation (INO) | payer MEDICAID ==
[2018-09-26 16:26] VITALS: BMI 33.6
[2018-09-26] MEDS ORDERED: Sodium Chloride 0.9% 500 ML IV STA (17:03)
[2018-09-26] MEDS ORDERED: Albuterol-Ipratrop 3 mg / 0.5 (3 ml) UD INH STA (17:03)
[2018-09-26] MEDS ORDERED: Albuterol-Ipratrop 3 mg / 0.5 (3 ml) UD ONE (17:18)
--- NOTE | 2018-09-26 17:41 | ED PDOC ---
History of Present Illness History of Present Illness: 42 year old female with history of pancreatic cancer and chemotherapy presents to ED with minimally productive cough x5 days. Patient reports cough associated with SOB, yellow sputum, no hemoptysis, chest tightness, worsens with exertion. She visited an ENT doctor for her left ear and throat pain, for which she was prescribed amoxicillin with mild relief for ear and throat pain but the cough worsened. Additionally, patient states she had subjective fever, chills, malaise fatigue, body aches and night sweats last night but denies leg swelling. Furthermore, she reports not being on any control pills. PMD: Simón Flores HPI: Influenza Time Seen by Provider: 09/26/18 16:39 Chief Complaint: Cough, Cold, Congestion Chief Complaint (Provider): Cough History Per: Patient Exam Limitations: no limitations Onset/Duration Of Symptoms: Days Symptoms include: fever, bodyaches, cough Past Medical History Reviewed: Historical Data, Nursing Documentation, Vital Signs Vital Signs: Last Vital Signs Temp 98.5 F 09/26/18 16:41 Pulse 97 H 09/26/18 16:41 Resp 18 09/26/18 16:41 BP 149/86 09/26/18 16:41 Pulse Ox 98 09/26/18 16:41 Primary Care Provider: Non [facility] Provider, - Medical History PMH: Back Problems, Gall Bladder Disease, Kidney Stones, Chronic Kidney Disease (denies hx of ckd), Sexually Transmitted Disease (genital herpes hx) Denies: Asthma, HIV, HTN, Hypercholesterolemia - Surgical History Surgical History: Cholecystectomy (20 yrs ago) - Family History Family History: States: Unknown Family Hx - Social History Current smoker - smoking cessation education provided: No Alcohol: None Drugs: Denies - Immunization History Hx Tetanus Toxoid Vaccination: No Hx Influenza Vaccination: Yes (2016) Hx Pneumococcal Vaccination: No - Home Medications Home Medications: Ambulatory Orders Medication Instructions Recorded Ibuprofen [Motrin] 600 mg PO Q6 PRN #20 tab 06/03/18 Naproxen [Naprosyn] 500 mg PO PRN PRN 06/08/18 - Allergies Allergies/Adverse Reactions: Allergies Allergy/AdvReac Type Severity Reaction Status Date / Time No Known Allergies Allergy Verified 09/26/18 16:43 Review of Systems ROS Statement: Except As Marked, All Systems Reviewed And Found Negative Constitutional: Positive for: Fever (subjective), Chills, Sweats (night), Malaise (fatigue), Other (body aches) ENT: Positive for: Ear Pain (left), Throat Pain Cardiovascular: Negative for: Edema (denies leg swelling) Respiratory: Positive for: Cough (minimally productive), SOB with Exertion, Sputum (yellow). Negative for: Hemoptysis Physical Exam - Reviewed Nursing Documentation Reviewed: Yes Vital Signs Reviewed: Yes - Physical Exam Appears: Positive for: No Acute Distress, Uncomfortable Head Exam: Positive for: ATRAUMATIC, NORMOCEPHALIC Skin: Positive for: Warm, Dry Eye Exam: Positive for: EOMI, PERRL ENT: Positive for: TM Is/Are (left TM demonstrates white pinpoint lesions with some mild edema and erythema of the canal, right TM is normal). Negative for: Pharyngeal Erythema (clear pharynx), Tonsillar Exudate (normal tonsils) Neck: Positive for: Painless ROM, Supple Cardiovascular/Chest: Positive for: Regular Rate, Rhythm. Negative for: Murmur Respiratory: Positive for: Wheezing (faint, occasional expository otherwise clear lung sounds). Negative for: Accessory Muscle Use, Rales, Rhonchi, Respiratory Distress Gastrointestinal/Abdominal: Positive for: Soft. Negative for: Tenderness Back: Positive for: Normal Inspection. Negative for: Decreased ROM Extremity: Positive for: Normal ROM. Negative for: Pedal Edema, Calf Tenderness Lymphatic: Negative for: Adenopathy Neurological/Psych: Positive for: Awake, Alert. Negative for: Motor/Sensory Deficits Medical Decision Making Medical Decision Making: Time: 1725 Initial Impression: cough with SOB, pneumonia, bronchitis, URI, pulmonary embolism, pleural diffusion, fluid overflow Initial Plan: --BBK --EKG --Labs (CMP, CBC, Lactic Acid, Magnesium, Phosphorous, B-Type Natriuretic, Peptide, D Dimer, Prothrombin) --X-ray (Chest two views) --Albuterol 3 ml --IV fluid --Respiratory Peak Flow --Rapid Strep Group --Influenza A B Stat Accession No. : [id number] Patient Name / ID : GEM LYMAN / [id number] Exam Date : 09/26/2018 18:45:24 ( Approved ) Study Comment : Sex / Age : F / 42Y Creator : Brando Jameson MD Dictator : Brando Jameson MD Watershed Tender : Newspaper Columnist : Brando Jameson MD Approver2 : Report Date : 09/26/2018 19:08:12 My Comment : Date of service: 09/26/2018 PROCEDURE: CT Chest with contrast (Pulmonary Angiogram) HISTORY: sob h/o cancer COMPARISON: None available. TECHNIQUE: Axial computed tomography images were obtained of the chest in the pulmonary arterial phase of enhancement. Coronal and sagittal reformatted images were created and reviewed. Intravenous contrast dose: 63 cc Visipaque 320. Mean Hounsfield value in the main pulmonary artery: 184.90 Radiation dose: Total exam DLP = 308.23 mGy-cm. This CT exam was performed using one or more of the following dose reduction techniques: Automated exposure control, adjustment of the mA and/or kV according to patient size, and/or use of iterative reconstruction technique. FINDINGS: PULMONARY ARTERIES: No large or central pulmonary emboli detected. Qualitative and quantitative assessment of opacification of the pulmonary arteries precludes assessment at and beyond segmental branches. Dilated main pulmonary artery consistent with pulmonary arterial hypertension. AORTA: No acute findings. No thoracic aortic aneurysm. No atherosclerotic calcification or mural plaque present. LUNGS: Unremarkable. No nodule, mass or pulmonary consolidation. PLEURAL SPACES: Unremarkable. No effusion or pneumothorax. HEART: Unremarkable. No cardiomegaly. No significant pericardial effusion. LYMPH NODES: No lymphadenopathy. BONES, CHEST WALL: Unremarkable. No fracture or destructive lesion OTHER FINDINGS: Enlarged, incompletely characterized right thyroid lobe likely containing a cystic mass. Elective thyroid ultrasound recommended. IMPRESSION: No large, central pulmonary emboli. Limitations of the current examination: Suboptimal opacification of pulmonary arterial system precluding meaningful assessment for pulmonary embolism at and beyond the segmental branch level. Scribe Attestation: Documented by Efrain Tong, acting as a scribe for Giselle Ridley MD. Provider Scribe Attestation: All medical record entries made by the Scribe were at my direction and personally dictated by me. I have reviewed the chart and agree that the record accurately reflects my personal performance of the history, physical exam, medical decision making, and the department course for this patient. I have also personally directed, reviewed, and agree with the discharge instructions and disposition. - Laboratory Results Result Diagrams: 09/26/18 17:48 09/26/18 17:48 - ECG O2 Sat by Pulse Oximetry: 98 (RA) Pulse Ox Interpretation: Normal Disposition - Clinical Impression Clinical Impression: Acute dyspnea Discussed With : Gia Choudhury Doctor Will See Patient In The: Hospital - Disposition
[2018-09-26 17:56] LABS: BASO # 0.1 K/uL (0.0-0.2); BASO % 0.3 % (0.0-2.0); EOS # 0.1 K/uL (0.0-0.7); EOS % 0.6 % (0.0-4.0); HEMOGLOBIN 11.1 g/dL (12.0-16.0); LYMPH # 2.3 K/uL (1.0-4.3); LYMPH % 9.3 % (20.0-40.0); MEAN CELL VOLUME 93.6 fl (81.0-99.0); MEAN CORPUSCULAR HEMOGLOBIN 30.7 pg (27.0-31.0); MEAN CORPUSCULAR HGB CONC 32.8 g/dL (33.0-37.0); MEAN PLATELET VOLUME 8.2 fl (7.2-11.7); MONO % 0.2 % (0.0-10.0); NEUT % 89.6 % (50.0-75.0); NRBC % 0.1 % (0.0-0.0); PLATELET COUNT 112 K/uL (130-400); RBC 3.61 Mil/uL (3.80-5.20); RED CELL DISTRIBUTION WIDTH 21.1 % (11.5-14.5); WHITE BLOOD COUNT 24.6 K/uL (4.8-10.8)
[2018-09-26 18:03] LABS: PROTHROMBIN TIME 11.6 Seconds (9.8-13.1)
[2018-09-26 18:06] LABS: ALB/GLOB RATIO 1.2 (1.0-2.1); ALBUMIN 4.2 g/dL (3.5-5.0); ALT/SGPT 28 U/L (9-52); AST/SGOT 26 U/L (14-36); BLOOD UREA NITROGEN 14 mg/dl (7-17); CALCIUM 9.2 mg/dL (8.4-10.2); GFR NON-AFRICAN AMERICAN > 60; PARTIAL THROMBOPLASTIN TIME 27.6 Seconds (25.6-37.1)
--- NOTE | 2018-09-26 18:11 | RAD ---
Date of service: 09/26/2018 HISTORY: Cough, shortness of breath. COMPARISON: 06/01/2018. TECHNIQUE: Chest PA and lateral views FINDINGS: LUNGS: No active pulmonary disease. PLEURA: No significant pleural effusion identified. No pneumothorax apparent. CARDIOVASCULAR: No aortic atherosclerotic calcification present. Normal cardiac size. No pulmonary vascular congestion. OSSEOUS STRUCTURES: No significant abnormalities. VISUALIZED UPPER ABDOMEN: Normal. OTHER FINDINGS: None. IMPRESSION: No active disease. No significant interval change compared to the prior examination(s).
[2018-09-26 18:15] LABS: B-TYPE NATRIURETIC PEPTIDE 119 pg/ml (0-450)
[2018-09-26] MEDS ORDERED: Sodium Chloride 0.9% 50 ML IV ONE (18:24)
[2018-09-26] MEDS ORDERED: Iodixanol 320 MG/ML 100 ML BOTTLE IV ONE (18:24)
--- NOTE | 2018-09-26 19:11 | CT ---
Date of service: 09/26/2018 PROCEDURE: CT Chest with contrast (Pulmonary Angiogram) HISTORY: sob h/o cancer COMPARISON: None available. TECHNIQUE: Axial computed tomography images were obtained of the chest in the pulmonary arterial phase of enhancement. Coronal and sagittal reformatted images were created and reviewed. Intravenous contrast dose: 63 cc Visipaque 320. Mean Hounsfield value in the main pulmonary artery: 184.90 Radiation dose: Total exam DLP = 308.23 mGy-cm. This CT exam was performed using one or more of the following dose reduction techniques: Automated exposure control, adjustment of the mA and/or kV according to patient size, and/or use of iterative reconstruction technique. FINDINGS: PULMONARY ARTERIES: No large or central pulmonary emboli detected. Qualitative and quantitative assessment of opacification of the pulmonary arteries precludes assessment at and beyond segmental branches. Dilated main pulmonary artery consistent with pulmonary arterial hypertension. AORTA: No acute findings. No thoracic aortic aneurysm. No atherosclerotic calcification or mural plaque present. LUNGS: Unremarkable. No nodule, mass or pulmonary consolidation. PLEURAL SPACES: Unremarkable. No effusion or pneumothorax. HEART: Unremarkable. No cardiomegaly. No significant pericardial effusion. LYMPH NODES: No lymphadenopathy. BONES, CHEST WALL: Unremarkable. No fracture or destructive lesion OTHER FINDINGS: Enlarged, incompletely characterized right thyroid lobe likely containing a cystic mass. Elective thyroid ultrasound recommended. IMPRESSION: No large, central pulmonary emboli. Limitations of the current examination: Suboptimal opacification of pulmonary arterial system precluding meaningful assessment for pulmonary embolism at and beyond the segmental branch level.
[2018-09-26 19:19] LABS: BANDS 4 % (0-2); LYMPHOCYTE 10 % (20-50); MONOCYTE 2 % (0-10); NEUTROPHIL 84 % (42-75); PLATELET ESTIMATE DECREASED (NORMAL); TOTAL CELLS COUNTED 100
[2018-09-26 19:21] LABS: ANISOCYTOSIS MODERATE
[2018-09-26 19:22] LABS: OVALOCYTES SLIGHT; TOXIC GRANULATION PRESENT
[2018-09-26 21:18] LABS: SQUAMOUS EPITHIAL 4 /hpf (0-5); URINE AMORPHOUS SEDIMENT RARE /ul (<OCC); URINE BILIRUBIN SMALL (NEGATIVE); URINE BLOOD SMALL (NEGATIVE); URINE CLARITY SLIGHTY-CLOUDY (Clear); URINE COLOR AMBER (YELLOW); URINE GLUCOSE (UA) NEG (NEGATIVE); URINE HYALINE CAST 0-2 /hpf (0-2); URINE LEUKOCYTE ESTERASE NEG Leu/uL (Negative); URINE PROTEIN 100 mg/dL (NEGATIVE); URINE UROBILINOGEN 0.2-1.0 mg/dL (0.2-1.0)
[2018-09-26 22:49] VITALS: RESP 20
--- NOTE | 2018-09-26 22:59 | CP.PCM.HP ---
History of Present Illness - History of Present Illness History of Present Illness: 42 yo F with pancreatic cancer (dx 05/2018) presents with cough and chest tightness. Pt reports cough began approximately 2-3 days ago. dry, non productive until this morning (yellow) denies recent sick contacts, travel. Associated with subjective fever, chills, fatigue. Pt reports chest discomfort at L lateral chest to shoulder. Rated 7/10. She noticed pain worse on exertion, especially while at the gym. She also noticed pain on deep inspiration. Denies calf pain, or lower extremity swelling. She has been on chemo treatment for pancreatic cancer. Pt states she had PET scan in June: revealing 2 masses ENT: Dr. Vides at [place] ONC: Dr. Tomlinson at [place] PMD: Dr. Flores Surg: cholecystectomy Soc: Denies: smoking, alcohol, illicit drugs Famhx: none NKDA Present on Admission - Present on Admission Any Indicators Present on Admission: No History of Uncontrolled Diabetes: No Urinary Catheter: No Review of Systems - Cardiovascular Cardiovascular: Chest Pain, Chest Pain with Activity - Respiratory Respiratory: Cough, Dyspnea, Dyspnea on Exertion - Gastrointestinal Gastrointestinal: absent: Abdominal Pain - Genitourinary Genitourinary: absent: Dysuria - Neurological Neurological: absent: Abnormal Gait Past Patient History - Past Medical History & Family History Past Medical History?: Yes - Past Social History Smoking Status: Never Smoked Alcohol: None Drugs: Denies Home Situation {Lives}: With Family - CARDIAC Hx Hypercholesterolemia: No Hx Hypertension: No - PULMONARY Hx Asthma: No - NEUROLOGICAL Hx Neurological Disorder: No - HEENT Hx HEENT Problems: Yes Hx Deafness: Yes (wears hearing aids to Left, forgot hearing aide to R at home) - RENAL Hx Chronic Kidney Disease: Yes (denies hx of ckd) - ENDOCRINE/METABOLIC Hx Endocrine Disorders: No Hx Diabetes Mellitus Type 2: No - HEMATOLOGICAL/ONCOLOGICAL Hx Cancer: Yes (Pancreatic dx 05/2018) Hx Human Immunodeficiency Virus (HIV): No - INTEGUMENTARY Hx Dermatological Problems: No - MUSCULOSKELETAL/RHEUMATOLOGICAL Hx Musculoskeletal Disorders: No Hx Falls: No - GASTROINTESTINAL Hx Gall Bladder Disease: Yes - GENITOURINARY/GYNECOLOGICAL Hx Sexually Transmitted Disorders: Yes (genital herpes hx) - PSYCHIATRIC Hx Emotional Abuse: No Hx Physical Abuse: No Hx Substance Use: No - SURGICAL HISTORY Hx Cholecystectomy: Yes (20 yrs ago) - ANESTHESIA Hx Anesthesia: Yes Hx Anesthesia Reactions: No Hx Malignant Hyperthermia: No Meds Allergies/Adverse Reactions: Allergies Allergy/AdvReac Type Severity Reaction Status Date / Time No Known Allergies Allergy Verified 09/26/18 16:43 Physical Exam - Constitutional Appears: Well, No Acute Distress - Eye Exam Eye Exam: EOMI - ENT Exam ENT Exam: Mucous Membranes Moist - Respiratory Exam Respiratory Exam: Clear to Auscultation Bilateral, NORMAL BREATHING PATTERN. absent: Wheezes - Cardiovascular Exam Cardiovascular Exam: REGULAR RHYTHM, +S1, +S2 - GI/Abdominal Exam GI & Abdominal Exam: Normal Bowel Sounds, Soft. absent: Tenderness - Extremities Exam Extremities exam: Negative for: calf tenderness - Neurological Exam Neurological exam: Alert, CN II-XII Intact, Oriented x3 - Psychiatric Exam Psychiatric exam: Normal Affect, Normal Mood Results - Vital Signs Recent Vital Signs: Last Vital Signs Temp 98.2 F 09/26/18 22:44 Pulse 78 09/26/18 22:44 Resp 20 09/26/18 22:44 BP 142/74 09/26/18 22:44 Pulse Ox 96 09/26/18 22:44 - Labs Result Diagrams: 09/26/18 17:48 09/26/18 17:48 Labs: Laboratory Results - last 24 hr 09/26/18 09/26/18 09/26/18 17:48 17:48 17:48 WBC RBC Hgb Hct MCV MCH MCHC RDW Plt Count MPV Neut % (Auto) Lymph % (Auto) [place] % (Auto) Eos % (Auto) Baso % (Auto) Neut # (Auto) Lymph # (Auto) [place] # (Auto) Eos # (Auto) Baso # (Auto) Neutrophils % (Manual) Band Neutrophils % Lymphocytes % (Manual) Monocytes % (Manual) Toxic Granulation Platelet Estimate Anisocytosis (manual) Ovalocytes PT 11.6 INR 1.0 APTT 27.6 D-Dimer, Quantitative 173 Sodium 139 Potassium 3.6 Chloride 100 Carbon Dioxide 29 Anion Gap 14 BUN 14 Creatinine 0.7 Est GFR ( Amer) > 60 Est GFR (Non-Af Amer) > 60 Random Glucose 105 Lactic Acid Calcium 9.2 Phosphorus 3.8 Magnesium 1.7 Total Bilirubin 0.4 AST 26 ALT 28 Alkaline Phosphatase 169 H D NT-Pro-B Natriuret Pep 119 Total Protein 7.5 Albumin 4.2 Globulin 3.4 Albumin/Globulin Ratio 1.2 Urine Color Urine Clarity Urine pH Ur Specific [place] Urine Protein Urine Glucose (UA) Urine Ketones Urine Blood Urine Nitrate Urine Bilirubin Urine Urobilinogen Ur Leukocyte Esterase Urine RBC (Auto) Urine Microscopic WBC Ur Squamous Epith Cells Amorphous Sediment Hyaline Casts Influenza Typ A,B (EIA) Grp A Beta Strep Ag Blood Type A POSITIVE Antibody Screen Negative BBK History Checked Patient has bt 09/26/18 09/26/18 09/26/18 17:48 17:48 17:48 WBC 24.6 H D RBC 3.61 L Hgb 11.1 L Hct 33.7 L MCV 93.6 D MCH 30.7 MCHC 32.8 L RDW 21.1 H Plt Count 112 L D MPV 8.2 Neut % (Auto) 89.6 H Lymph % (Auto) 9.3 L [place] % (Auto) 0.2 Eos % (Auto) 0.6 Baso % (Auto) 0.3 Neut # (Auto) 22.0 H Lymph # (Auto) 2.3 [place] # (Auto) 0.0 Eos # (Auto) 0.1 Baso # (Auto) 0.1 Neutrophils % (Manual) 84 H Band Neutrophils % 4 H Lymphocytes % (Manual) 10 L Monocytes % (Manual) 2 Toxic Granulation Present Platelet Estimate Decreased L Anisocytosis (manual) Moderate Ovalocytes Slight PT INR APTT D-Dimer, Quantitative Sodium Potassium Chloride Carbon Dioxide Anion Gap BUN Creatinine Est GFR ( Amer) Est GFR (Non-Af Amer) Random Glucose Lactic Acid 1.3 Calcium Phosphorus Magnesium Total Bilirubin AST ALT Alkaline Phosphatase NT-Pro-B Natriuret Pep Total Protein Albumin Globulin Albumin/Globulin Ratio Urine Color Urine Clarity Urine pH Ur Specific [place] Urine Protein Urine Glucose (UA) Urine Ketones Urine Blood Urine Nitrate Urine Bilirubin Urine Urobilinogen Ur Leukocyte Esterase Urine RBC (Auto) Urine Microscopic WBC Ur Squamous Epith Cells Amorphous Sediment Hyaline Casts Influenza Typ A,B (EIA) Negative for flu a/b Grp A Beta Strep Ag Blood Type Antibody Screen BBK History Checked 09/26/18 09/26/18 17:48 21:00 WBC RBC Hgb Hct MCV MCH MCHC RDW Plt Count MPV Neut % (Auto) Lymph % (Auto) [place] % (Auto) Eos % (Auto) Baso % (Auto) Neut # (Auto) Lymph # (Auto) [place] # (Auto) Eos # (Auto) Baso # (Auto) Neutrophils % (Manual) Band Neutrophils % Lymphocytes % (Manual) Monocytes % (Manual) Toxic Granulation Platelet Estimate Anisocytosis (manual) Ovalocytes PT INR APTT D-Dimer, Quantitative Sodium Potassium Chloride Carbon Dioxide Anion Gap BUN Creatinine Est GFR ( Amer) Est GFR (Non-Af Amer) Random Glucose Lactic Acid Calcium Phosphorus Magnesium Total Bilirubin AST ALT Alkaline Phosphatase NT-Pro-B Natriuret Pep Total Protein Albumin Globulin Albumin/Globulin Ratio Urine Color Amaya Urine Clarity Slighty-cloudy Urine pH 6.0 Ur Specific [place] 1.026 Urine Protein 100 Urine Glucose (UA) Neg Urine Ketones Negative Urine Blood Small Urine Nitrate Negative Urine Bilirubin Small Urine Urobilinogen 0.2-1.0 Ur Leukocyte Esterase Neg Urine RBC (Auto) 6 H Urine Microscopic WBC 5 Ur Squamous Epith Cells 4 Amorphous Sediment Rare H Hyaline Casts 0-2 Influenza Typ A,B (EIA) Grp A Beta Strep Ag Negative Blood Type Antibody Screen BBK History Checked Assessment & Plan - Assessment and Plan (Free Text) Assessment: 42 yo F with pancreatic cancer (dx 05/2018) presents with cough and chest tightness. Admitted to r/o PE and ACS Plan: CXR: No active disease. No significant interval change compared to the prior examination(s). CT CHEST: No large, central pulmonary emboli. Limitations of the current examination: Suboptimal opacification of pulmonary arterial system precluding meaningful assessment for pulmonary embolism at and beyond the segmental branch level. V/Q scan: pending Venous duplex: pending official interpretation SOB r/o PE Admit to tele; campus monitor f/u neg hx of pancratic cancer CT chest limited study f/u V/Q and venous duplex, am labs, blood/urine cultures monitor symptoms Sore throat WBC 24.6 Group A strep neg c/w Amoxicillin for 2 more days for total of 7 day course Pt able to tolerate po foods w/o difficulty continue to monitor Chest tightness r/o ACS troponin neg x1 f/u troponin q6hr x2 Hx of pancreatic cancer Under care of Onc: Dr. Mendez Chemo regimen DVT prophylaxis Lovenox SCD Case and plan d/w Dr. Kei Connor MD PGY-2
[2018-09-27] MEDS: Oxycodone/Acetaminophen 5/325 mg Tab PO PRN ×2 (00:33→11:12)
[2018-09-27] MEDS ORDERED: Oxycodone/Acetaminophen 5/325 mg Tab PO ONE (04:34)
[2018-09-27 05:57] LABS: HEMOGLOBIN 10.6 g/dL (12.0-16.0); MEAN CELL VOLUME 93.3 fl (81.0-99.0); MEAN CORPUSCULAR HGB CONC 33.2 g/dL (33.0-37.0); RBC 3.41 Mil/uL (3.80-5.20); RED CELL DISTRIBUTION WIDTH 20.9 % (11.5-14.5)
[2018-09-27 06:18] LABS: BLOOD UREA NITROGEN 10 mg/dl (7-17); CALCIUM 8.9 mg/dL (8.4-10.2); GFR NON-AFRICAN AMERICAN > 60
[2018-09-27] MEDS ORDERED: Enoxaparin 40 mg Syringe SC SCH (09:00)
--- NOTE | 2018-09-27 09:52 | CARD ---
APPROVED REPORT Date of service: 09/26/2018 EKG Measurement Heart [id number] [id number] [id number] <Conclusion> Normal sinus rhythm Normal ECG
--- NOTE | 2018-09-27 10:45 | CP.PCM.PN ---
Objective - Vital Signs/Intake and Output Vital Signs (last 24 hours): Temp Pulse Resp BP Pulse Ox 97.7 F 66 20 145/84 95 09/27/18 08:13 09/27/18 08:13 09/27/18 08:13 09/27/18 08:13 09/27/18 08:13 - Medications Medications: Current Medications Acetaminophen (Tylenol 325mg Tab) 650 mg PO Q6 PRN PRN Reason: Pain, Mild (1-3) Amoxicillin (Amoxil 500 Mg Cap) 500 mg PO Q12 FRED; Protocol Last Admin: 09/27/18 09:41 Dose: 500 mg Enoxaparin Sodium (Lovenox) 40 mg SC DAILY FRED; Protocol Last Admin: 09/27/18 09:41 Dose: 40 mg Ibuprofen (Motrin Tab) 600 mg PO Q6 PRN PRN Reason: Pain, moderate (4-7) Loratadine (Claritin) 10 mg PO DAILY PRN PRN Reason: Allergy symptoms Oxycodone/Acetaminophen (Percocet 5/325 Mg Tab) 1 tab PO Q6 PRN PRN Reason: Pain, severe (8-10) Stop: 09/29/18 22:12 Last Admin: 09/27/18 00:33 Dose: 1 tab - Labs Labs: 09/27/18 05:15 09/27/18 05:15 PT 11.6 Seconds (9.8-13.1) 09/26/18 17:48 INR 1.0 09/26/18 17:48 APTT 27.6 Seconds (25.6-37.1) 09/26/18 17:48
--- NOTE | 2018-09-27 11:05 | US ---
Date of service: 09/26/2018 PROCEDURE: Bilateral lower extremity venous duplex Doppler. HISTORY: R/O DVT COMPARISON: None available. TECHNIQUE: Bilateral common femoral, superficial femoral, popliteal and posterior tibial veins were evaluated. Flow was assessed with color Doppler, compressibility, assessment of phasic flow and augmentation response. FINDINGS: COMMON FEMORAL VEIN: Right CFV: Unremarkable. Left CFV: Unremarkable. SUPERFICIAL FEMORAL VEIN: Right SFV: Unremarkable. Left SFV: Unremarkable. POPLITEAL VEIN: Right Popliteal: Unremarkable. Left Popliteal: Unremarkable. POSTERIOR TIBIAL VEIN: Right PTV: Unremarkable. Left PTV: Unremarkable. OTHER FINDINGS: There is a 1.9 x 4.4 x 4.3 cm popliteal cyst on the left. IMPRESSION: No evidence of deep venous thrombosis. 4.4 cm left popliteal cyst.
--- NOTE | 2018-09-27 11:28 | CP.PCM.DIS ---
Provider - Provider Date of Admission: 09/26/18 20:09 Attending physician: Gia Choudhury MD Time Spent in preparation of Discharge (in minutes): 33 Diagnosis - Discharge Diagnosis (1) Chest pain Status: Acute (2) URI (upper respiratory infection) Status: Acute Hospital Course - Lab Results Lab Results: Most Recent Lab Values WBC 24.0 K/uL (4.8-10.8) H 09/27/18 05:15 RBC 3.41 Mil/uL (3.80-5.20) L 09/27/18 05:15 Hgb 10.6 g/dL (12.0-16.0) L 09/27/18 05:15 Hct 31.8 % (34.0-47.0) L 09/27/18 05:15 MCV 93.3 fl (81.0-99.0) 09/27/18 05:15 MCH 31.0 pg (27.0-31.0) 09/27/18 05:15 MCHC 33.2 g/dL (33.0-37.0) 09/27/18 05:15 RDW 20.9 % (11.5-14.5) H 09/27/18 05:15 Plt Count 91 K/uL (130-400) L D 09/27/18 05:15 MPV 8.2 fl (7.2-11.7) 09/26/18 17:48 Neut % (Auto) 89.6 % (50.0-75.0) H 09/26/18 17:48 Lymph % (Auto) 9.3 % (20.0-40.0) L 09/26/18 17:48 [place] % (Auto) 0.2 % (0.0-10.0) 09/26/18 17:48 Eos % (Auto) 0.6 % (0.0-4.0) 09/26/18 17:48 Baso % (Auto) 0.3 % (0.0-2.0) 09/26/18 17:48 Neut # (Auto) 22.0 K/uL (1.8-7.0) H 09/26/18 17:48 Lymph # (Auto) 2.3 K/uL (1.0-4.3) 09/26/18 17:48 [place] # (Auto) 0.0 K/uL (0.0-0.8) 09/26/18 17:48 Eos # (Auto) 0.1 K/uL (0.0-0.7) 09/26/18 17:48 Baso # (Auto) 0.1 K/uL (0.0-0.2) 09/26/18 17:48 Neutrophils % (Manual) 84 % (42-75) H 09/26/18 17:48 Band Neutrophils % 4 % (0-2) H 09/26/18 17:48 Lymphocytes % (Manual) 10 % (20-50) L 09/26/18 17:48 Monocytes % (Manual) 2 % (0-10) 09/26/18 17:48 Toxic Granulation Present 09/26/18 17:48 Platelet Estimate Decreased (NORMAL) L 09/26/18 17:48 Anisocytosis (manual) Moderate 09/26/18 17:48 Ovalocytes Slight 09/26/18 17:48 PT 11.6 Seconds (9.8-13.1) 09/26/18 17:48 INR 1.0 09/26/18 17:48 APTT 27.6 Seconds (25.6-37.1) 09/26/18 17:48 D-Dimer, Quantitative 173 ng/mlDDU (0-230) 09/26/18 17:48 Sodium 138 mmol/l (132-148) 09/27/18 05:15 Potassium 4.0 MMOL/L (3.6-5.0) 09/27/18 05:15 Chloride 102 mmol/L (98-107) 09/27/18 05:15 Carbon Dioxide 26 mmol/L (22-30) 09/27/18 05:15 Anion Gap 14 (10-20) 09/27/18 05:15 BUN 10 mg/dl (7-17) 09/27/18 05:15 Creatinine 0.6 mg/dl (0.7-1.2) L 09/27/18 05:15 Est GFR ( Amer) > 60 09/27/18 05:15 Est GFR (Non-Af Amer) > 60 09/27/18 05:15 Random Glucose 100 mg/dL (65-105) 09/27/18 05:15 Lactic Acid 1.3 mmol/L (0.7-2.1) 09/26/18 17:48 Calcium 8.9 mg/dL (8.4-10.2) 09/27/18 05:15 Phosphorus 3.8 mg/dl (2.5-4.5) 09/26/18 17:48 Magnesium 1.7 MG/DL (1.6-2.3) 09/26/18 17:48 Total Bilirubin 0.4 mg/dl (0.2-1.3) 09/26/18 17:48 AST 26 U/L (14-36) 09/26/18 17:48 ALT 28 U/L (9-52) 09/26/18 17:48 Alkaline Phosphatase 169 U/L (38-126) H D 09/26/18 17:48 Troponin I < 0.0120 ng/mL (0.00-0.120) 09/27/18 09:40 NT-Pro-B Natriuret Pep 119 pg/ml (0-450) 09/26/18 17:48 Total Protein 7.5 G/DL (6.3-8.2) 09/26/18 17:48 Albumin 4.2 g/dL (3.5-5.0) 09/26/18 17:48 Globulin 3.4 gm/dL (2.2-3.9) 09/26/18 17:48 Albumin/Globulin Ratio 1.2 (1.0-2.1) 09/26/18 17:48 Urine Color [place] (YELLOW) 09/26/18 21:00 Urine Clarity Slighty-cloudy (Clear) 09/26/18 21:00 Urine pH 6.0 (5.0-8.0) 09/26/18 21:00 Ur Specific [place] 1.026 (1.003-1.030) 09/26/18 21:00 Urine Protein 100 mg/dL (NEGATIVE) 09/26/18 21:00 Urine Glucose (UA) Neg mg/dL (NEGATIVE) 09/26/18 21:00 Urine Ketones Negative mg/dL (NEGATIVE) 09/26/18 21:00 Urine Blood Small (NEGATIVE) 09/26/18 21:00 Urine Nitrate Negative (NEGATIVE) 09/26/18 21:00 Urine Bilirubin Small (NEGATIVE) 09/26/18 21:00 Urine Urobilinogen 0.2-1.0 mg/dL (0.2-1.0) 09/26/18 21:00 Ur Leukocyte Esterase Neg Jodi/uL (Negative) 09/26/18 21:00 Urine RBC (Auto) 6 /hpf (0-3) H 09/26/18 21:00 Urine Microscopic WBC 5 /hpf (0-5) 09/26/18 21:00 Ur Squamous Epith Cells 4 /hpf (0-5) 09/26/18 21:00 Amorphous Sediment Rare /ul (<OCC) H 09/26/18 21:00 Hyaline Casts 0-2 /hpf (0-2) 09/26/18 21:00 Influenza Typ A,B (EIA) Negative for flu a/b (NEGATIVE) 09/26/18 17:48 Grp A Beta Strep Ag Negative (NEGATIVE) 09/26/18 17:48 Blood Type A POSITIVE 09/26/18 17:48 Antibody Screen Negative 09/26/18 17:48 BBK History Checked Patient has bt 09/26/18 17:48 - Hospital Course Hospital Course: 42 yo F with pancreatic cancer (dx 06/2018) presented with cough and chest tightness. Pt reports cough began approximately 2-3 days ago. dry, productive of yellowish phlegm denies recent sick contacts, travel. Associated with subjective fever, chills, fatigue. Pt reported chest discomfort at L lateral chest to shoulder 7/10 on admission. She noticed pain worse on exertion, especially while at the gym. She also noticed pain on deep inspiration. Denies calf pain, or lower extremity swelling. Patient on chemo treatment for pancreatic cancer, last treatemt recived last wednesday 09/20. Patient today denies chest pain, shortness of breath, palpitations, fever, chills at this time. Patient reports some productive cough today, denies shortness of breath, fever or other acute complaint at this time. Troponin x 3 sets negatives, CTA chest no PE, D-dimer also 173 normal. EKG WNL Patient stable to be discharge home, clinically stable. elevated WBC likeky due chemo therapy, afebrile, VS normal. Continue with outpatient treatemt for URI with amoxicillin as prescribed by PMD, instructed to continue with medications as prescribed. Stable to be discharge home. Discharge Exam - Head Exam Head Exam: ATRAUMATIC, NORMOCEPHALIC - Eye Exam Eye Exam: EOMI - ENT Exam ENT Exam: Mucous Membranes Moist - Respiratory Exam Respiratory Exam: Clear to PA & Lateral, NORMAL BREATHING PATTERN - Cardiovascular Exam Cardiovascular Exam: REGULAR RHYTHM, +S1, +S2 - GI/Abdominal Exam GI & Abdominal Exam: Soft - Extremities Exam Extremities exam: normal inspection - Neurological Exam Neurological exam: Alert, Oriented x3 - Psychiatric Exam Psychiatric exam: Normal Affect - Skin Skin Exam: Normal Color, Warm Discharge Plan - Discharge Medications Prescriptions: guaiFENesin [guaifENESIN] 200 mg PO Q6H 7 Days #1 udc - Follow Up Plan Condition: GOOD Disposition: HOME/ ROUTINE Patient education suggested?: Yes Instructions: Viral Upper Respiratory Infection, Adult (DC), Chest Pain (DC), Cough, Runny Nose, and the Common Cold (DC) Additional Instructions: Follow up with your PMD in 2 to 3 days Follow up with your doctor Dr Mendez within a week Continue taking your medications as prescribed. ED Precautions given: Go to the ED if you have chest pain, shortness of breath, fever, or other new symptom of concern presents. Referrals: Simón Flores DO [[facility]] - Ruddy Mendez MD [Non-Staff] -
[2018-09-27] MEDS ORDERED: NAPROXEN 500 MG PO PRN (11:44)
[2018-09-27 12:41] VITALS: BP 153/92; PULSE 74; TEMP 98.1; O2SAT 96
== END 2018-09-27 13:42 | disposition home or self-care (01) ==
LOC: H.ER 16:25 → INTOOBSV 20:09 → H.ERHOLD 20:09 → H.TEL 22:26
PROVIDERS: ADMIT Internal Medicine; ATTEND Internal Medicine
DX: R07.89 Other chest pain (principal); D69.6 Thrombocytopenia, unspecified; D72.829 Elevated white blood cell count, unspecified; H66.92 Otitis media, unspecified, left ear; J06.9 Acute upper respiratory infection, unspecified; H91.93 Unspecified hearing loss, bilateral
CPT/HCPCS: 36415; 71046; 71275; 80048; 80053; 81003; 81025; 83605; 83735; 83880; 84100; 84484; 85025; 85027; 85378; 85610; 85730; 86850; 86900; 87040; 87070; 87086; 87430; 87804; 93005; 93970; 94150; 94640; 96361; 96372; 96374; 96375; 99285; G0378; J1650; J1885; J2270; J7030; Q9967